=== PATIENT | male | born 1945 | race Caucasian/White ===

== ENCOUNTER → 2016-08-14 | Outpatient (REF) | payer OTHER ==
[2016-08-14 12:11] LABS: MEAN CORPUSCULAR HEMOGLOBIN 34.6 pg (27.0-33.0); MEAN CORPUSCULAR VOLUME 98.9 fl (80.0-96.0); RED CELL DISTRIBUTION WIDTH 13.1 % (11.5-14.5); WHITE BLOOD COUNT 5.5 K/mm3 (4.0-10.0)
[2016-08-14 12:15] LABS: ALBUMIN/GLOBULIN RATIO 1.25 (1.00-1.93); BILIRUBIN,TOTAL 0.9 MG/DL (0.2-1.0); CALCIUM LEVEL 9.2 MG/DL (8.8-10.2); CREATININE FOR GFR 1.39 MG/DL (0.70-1.30); GLOMERULAR FILTRATION RATE 53.3 (>42); POTASSIUM SERUM 4.4 MEQ/L (3.5-5.1); TOTAL PROTEIN 7.2 GM/DL (6.4-8.2)
== END ==
LOC: M SFHCCLAY 07:05
PROVIDERS: ATTEND Family Medicine
DX: Z51.81 Encounter for therapeutic drug level monitoring (principal); Z79.01 Long term (current) use of anticoagulants; I25.10 Atherosclerotic heart disease of native coronary artery without angina pectoris; K76.89 Other specified diseases of liver; E78.00 Pure hypercholesterolemia, unspecified

== ENCOUNTER → 2016-12-26 | Outpatient (REF) | payer OTHER ==
[2016-12-26 11:40] LABS: BASO % 0.4 % (0.0-1.0); EOS # 0.2 K/mm3 (0.0-0.50); EOS % 3.2 % (0.0-3.0); LARGE UNSTAINED CELL # 0.2 K/mm3 (0.0-0.4); LARGE UNSTAINED CELL % 2.4 % (0.0-4.0); LYMPH # 1.1 K/mm3 (1.5-4.5); LYMPH % 17.8 % (24.0-44.0); MEAN CORPUSCULAR HEMOGLOBIN 34.5 pg (27.0-33.0); MEAN CORPUSCULAR HGB CONC 34.8 g/dl (32.0-36.5); MEAN CORPUSCULAR VOLUME 99.2 fl (80.0-96.0); MONO # 0.7 K/mm3 (0.0-0.8); MONO % 10.6 % (0.0-5.0); NEUTROPHILS # 4.1 K/mm3 (1.8-7.7); NEUTROPHILS % 65.6 % (36.0-66.0); PLATELET COUNT, AUTOMATED 209 k/mm3 (150-450); RED CELL DISTRIBUTION WIDTH 12.3 % (11.5-14.5); WHITE BLOOD COUNT 6.2 K/mm3 (4.0-10.0)
[2016-12-26 12:18] LABS: ALBUMIN 4.1 GM/DL (3.2-5.2); ALBUMIN/GLOBULIN RATIO 1.37 (1.00-1.93); BILIRUBIN,TOTAL 0.9 MG/DL (0.2-1.0); CALCIUM LEVEL 9.3 MG/DL (8.8-10.2); CREATININE FOR GFR 1.56 MG/DL (0.70-1.30); GLOMERULAR FILTRATION RATE 46.7 (>42); POTASSIUM SERUM 5.3 MEQ/L (3.5-5.1); TOTAL PROTEIN 7.1 GM/DL (6.4-8.2)
== END ==
LOC: M SFHCCLAY 09:04
PROVIDERS: ATTEND Family Medicine
DX: Z51.81 Encounter for therapeutic drug level monitoring (principal); Z79.01 Long term (current) use of anticoagulants; K76.89 Other specified diseases of liver; R73.9 Hyperglycemia, unspecified

== ENCOUNTER → 2017-02-05 | Outpatient (REF) | payer OTHER ==
[2017-02-05 19:33] LABS: ALBUMIN 3.9 GM/DL (3.2-5.2); CALCIUM LEVEL 8.8 MG/DL (8.8-10.2); CREATININE FOR GFR 1.51 MG/DL (0.70-1.30); GLOMERULAR FILTRATION RATE 48.5 (>42); MAGNESIUM LEVEL 2.3 MG/DL (1.8-2.4); PHOSPHORUS LEVEL 3.7 MG/DL (2.5-4.9)
== END ==
LOC: M LAB REF 16:35
PROVIDERS: ATTEND Physician Assistant
DX: I50.32 Chronic diastolic (congestive) heart failure (principal)

== ENCOUNTER → 2017-08-06 | Outpatient (REF) | payer OTHER ==
[2017-08-06 11:37] LABS: HEMATOCRIT 41.8 % (42.0-52.0); HEMOGLOBIN 14.7 g/dl (13.5-17.5); MEAN CORPUSCULAR HEMOGLOBIN 33.3 pg (27.0-33.0); MEAN CORPUSCULAR HGB CONC 35.2 g/dl (32.0-36.5); MEAN CORPUSCULAR VOLUME 94.8 fl (80.0-96.0); PLATELET COUNT, AUTOMATED 192 10^3/uL (150-450); RED BLOOD COUNT 4.41 10^6/uL (4.30-6.10); RED CELL DISTRIBUTION WIDTH 12.3 % (11.5-14.5); WHITE BLOOD COUNT 6.3 10^3/uL (4.0-10.0)
[2017-08-06 11:38] LABS: ALBUMIN/GLOBULIN RATIO 1.33 (1.00-1.93); ALKALINE PHOSPHATASE 72 U/L (45-117); ALT/SGPT 30 U/L (12-78); ANION GAP 10 MEQ/L (8-16); AST/SGOT 34 U/L (7-37); BLOOD UREA NITROGEN 18 MG/DL (7-18); CALCIUM LEVEL 9.2 MG/DL (8.8-10.2); CARBON DIOXIDE LEVEL 25 MEQ/L (21-32); CHLORIDE LEVEL 99 MEQ/L (98-107); CHOLESTEROL LEVEL 170 MG/DL (<200); CHOLESTEROL RISK RATIO 4.857 (<5); CREATININE FOR GFR 1.38 MG/DL (0.70-1.30); GAMMA GLUTAMYLTRANSPEPTIDASE 180 U/L (15-85); GLOMERULAR FILTRATION RATE 53.6 (>42); GLUCOSE, FASTING 278 MG/DL (70-100); HDL CHOLESTEROL 35 MG/DL (>40); LDL CHOLESTEROL 93.6 MG/DL (<100); MAGNESIUM LEVEL 2.5 MG/DL (1.8-2.4); NON-HDL-C 135 MG/DL; POTASSIUM SERUM 4.2 MEQ/L (3.5-5.1); SODIUM LEVEL 134 MEQ/L (136-145); TRIGLYCERIDES LEVEL 207 MG/DL (<150)
[2017-08-06 12:57] LABS: ESTIMATED AVERAGE GLUCOSE 214 MG/DL (60-110); HEMOGLOBIN A1c 9.1 %
== END ==
LOC: M SFHCCLAY 07:46
DX: R73.9 Hyperglycemia, unspecified (principal); I25.10 Atherosclerotic heart disease of native coronary artery without angina pectoris; E78.00 Pure hypercholesterolemia, unspecified; I10 Essential (primary) hypertension; Z79.01 Long term (current) use of anticoagulants; K76.89 Other specified diseases of liver
CPT/HCPCS: 82977

== ENCOUNTER → 2017-08-17 | Outpatient (CLI) | payer OTHER | LOC: M RAD 09:55 | DX: I65.23 Occlusion and stenosis of bilateral carotid arteries (principal) | CPT/HCPCS: 93880 ==

== ENCOUNTER → 2017-09-29 | Outpatient (REF) | payer OTHER ==
[2017-09-29 14:19] LABS: ALBUMIN/GLOBULIN RATIO 1.43 (1.00-1.93); ALKALINE PHOSPHATASE 62 U/L (45-117); ALT/SGPT 28 U/L (12-78); AST/SGOT 26 U/L (7-37); BILIRUBIN,DIRECT 0.3 MG/DL (0.0-0.2); CHOLESTEROL LEVEL 90 MG/DL (<200); HDL CHOLESTEROL 36 MG/DL (>40); LDL CHOLESTEROL 27.4 MG/DL (<100); NON-HDL-C 54 MG/DL; TOTAL PROTEIN 6.8 GM/DL (6.4-8.2); TRIGLYCERIDES LEVEL 133 MG/DL (<150)
== END ==
LOC: M LABDRAWC 11:51
DX: E78.2 Mixed hyperlipidemia (principal); E11.9 Type 2 diabetes mellitus without complications
CPT/HCPCS: 80076

== ENCOUNTER → 2017-09-29 | Outpatient (REF) | payer OTHER ==
[2017-09-29 13:50] LABS: ANION GAP 14 MEQ/L (8-16); BLOOD UREA NITROGEN 19 MG/DL (7-18); CALCIUM LEVEL 9.1 MG/DL (8.8-10.2); CARBON DIOXIDE LEVEL 24 MEQ/L (21-32); CHLORIDE LEVEL 100 MEQ/L (98-107); CREATININE FOR GFR 1.56 MG/DL (0.70-1.30); GLOMERULAR FILTRATION RATE 46.5 (>42); GLUCOSE, FASTING 141 MG/DL (70-100); SODIUM LEVEL 138 MEQ/L (136-145)
== END ==
LOC: M SFHCCLAY 07:28
DX: E11.9 Type 2 diabetes mellitus without complications (principal)

== ENCOUNTER → 2017-11-02 | Outpatient (CLI) | payer OTHER | LOC: M RAD 10:10 | DX: I70.70 Unspecified atherosclerosis of other type of bypass graft(s) of the extremities (principal); I70.0 Atherosclerosis of aorta; I70.8 Atherosclerosis of other arteries | CPT/HCPCS: 93925 ==

== ENCOUNTER → 2018-01-20 | Outpatient (CLI) | payer OTHER | LOC: M RAD 10:43 | DX: I65.23 Occlusion and stenosis of bilateral carotid arteries (principal) | CPT/HCPCS: 93880 ==

== ENCOUNTER → 2018-08-16 | Outpatient (REF) | payer MEDICARE ==
[2018-08-16 11:53] LABS: HEMOGLOBIN 12.5 g/dl (13.5-17.5); MEAN CORPUSCULAR HEMOGLOBIN 29.8 pg (27.0-33.0); MEAN CORPUSCULAR HGB CONC 32.9 g/dl (32.0-36.5); MEAN CORPUSCULAR VOLUME 90.7 fl (80.0-96.0); PLATELET COUNT, AUTOMATED 196 10^3/uL (150-450); RED BLOOD COUNT 4.19 10^6/uL (4.30-6.10); WHITE BLOOD COUNT 5.9 10^3/uL (4.0-10.0)
[2018-08-16 12:09] LABS: HEMOGLOBIN A1c 8.1 %
[2018-08-16 12:16] LABS: BILIRUBIN,TOTAL 0.7 MG/DL (0.2-1.0); CHOLESTEROL RISK RATIO 2.795 (<5); CREATININE FOR GFR 1.69 MG/DL (0.70-1.30); GLOMERULAR FILTRATION RATE 42.3 (>42); POTASSIUM SERUM 4.2 MEQ/L (3.5-5.1); TOTAL PROTEIN 7.1 GM/DL (6.4-8.2)
== END ==
LOC: M SFHCCLAY 07:08
PROVIDERS: ATTEND Family Medicine
DX: E78.00 Pure hypercholesterolemia, unspecified (principal); K76.89 Other specified diseases of liver; Z79.01 Long term (current) use of anticoagulants; I10 Essential (primary) hypertension; E11.9 Type 2 diabetes mellitus without complications

== ENCOUNTER → 2018-08-17 | Outpatient (CLI) | payer MEDICARE ==
--- NOTE | 2018-08-18 05:29 | REP ---
Clinical: Bilateral stenosis. Comparison: 08/17/2017 . Technique: Parker scale and color Doppler evaluation using linear high frequency transducer Findings: Two-dimensional parker scale and color images demonstrate mixed partially calcified atheromatous plaquing through the carotid bulbs and proximal internal carotid arteries. Calcifications causing posterior shadowing which limit evaluation and velocities are felt underestimate the extent of stenosis. Color Doppler interrogation demonstrates normal arterial wave patterns and velocities with mild spectral broadening. Normal flow direction is appreciated in the bilateral vertebral arteries. RIGHT (cm/s) LEFT (cm/s) ICA peak systolic velocity 101.1 51.3 ICA diastolic velocity 76 36 ECA peak systolic velocity 133.5 171.4 CCA peak systolic velocity 104.8 89.5 ICA/CCA ratio 0.98 0.50 Impression: Calcified plaquing limits evaluation. Narrowing is felt to be in the 50 to 69% range. Consider MRA for more definitive evaluation. Electronically Signed by Efrain Hernandez MD 08/18/2018 05:20 A
== END ==
LOC: M RAD 09:37
PROVIDERS: ATTEND Surgery Vascular Surgery
DX: I65.23 Occlusion and stenosis of bilateral carotid arteries (principal)

== ENCOUNTER → 2018-11-10 | Outpatient (REF) | payer MEDICARE ==
[2018-11-10 12:22] LABS: HEMOGLOBIN A1c 7.5 %
[2018-11-10 12:24] LABS: CALCIUM LEVEL 9.4 MG/DL (8.8-10.2); CHOLESTEROL RISK RATIO 2.361 (<5); CREATININE FOR GFR 1.47 MG/DL (0.70-1.30); GLOMERULAR FILTRATION RATE 49.7 (>42); POTASSIUM SERUM 4.2 MEQ/L (3.5-5.1); TOTAL PROTEIN 7.1 GM/DL (6.4-8.2)
== END ==
LOC: M SFHCCLAY 07:54
PROVIDERS: ATTEND Family Medicine
DX: E78.2 Mixed hyperlipidemia (principal); I48.2 Chronic atrial fibrillation; I25.10 Atherosclerotic heart disease of native coronary artery without angina pectoris; E11.9 Type 2 diabetes mellitus without complications

== ENCOUNTER → 2019-01-18 | Outpatient (CLI) | payer MEDICARE ==
--- NOTE | 2019-01-18 13:59 | REP ---
BILATERAL LOWER EXTREMITY DUPLEX DOPPLER ARTERIAL ULTRASOUND: COMPARISON: 11/02/2017. Real-time ultrasound evaluation and duplex Doppler interrogation of the bilateral lower extremity arterial systems is performed. CHESTER right is 0.88 and left 0.74. There is severe diffuse partially calcified and calcified plaque in the bilateral lower extremity arterial systems. On the right, significant stenosis is suspected in the right external iliac artery and common femoral artery. Monophasic waveforms again noted diffusely, except for a biphasic waveforms in the superficial femoral artery and profunda. There appear to be multifocal stenoses in the superficial femoral artery with a slow flow. The distal right posterior tibial artery is occluded, with reconstitution at the ankle. On the left, decreased velocity in the common femoral artery suggests more proximal stenosis. There is occlusion of the distal superficial femoral artery with reconstitution of the distal SFA and popliteal via the genicular . Biphasic waveform is seen in the left common femoral artery, with monophasic waveforms distal to that. The anterior tibial artery is dominant to the foot bilaterally. Right Peak Left Peak Systolic Velocity Systolic velocity Common femoral artery 348 cm/s 67 cm/s Profunda 92 cm/s 145 cm/s Proximal SFA 71 cm/s 46 cm/s Mid SFA 39 cm/s 31 cm/s Distal SFA 24 cm/s occluded Popliteal 33 cm/s 50 cm/s Proximal TONIE 19 cm/s 17 cm/s Tibial peroneal trunk 58 cm/s 22 cm/s Proximal DUPLEX TRIMMER 31 cm/s 23 cm/s Distal DUPLEX TRIMMER occluded 33 cm/s Distal TONIE 28 cm/s 26 cm/s IMPRESSION: Severe plaquing and narrowing bilaterally. On the right, significant stenosis is suspected in the right external iliac artery and common femoral artery. There appear to be multifocal stenoses in the superficial femoral artery with a slow flow. The distal right posterior tibial artery is occluded, with reconstitution at the ankle. On the left, decreased velocity in the common femoral artery suggests more proximal stenosis. There is occlusion of the distal superficial femoral artery with reconstitution of the distal SFA and popliteal via the genicular . Electronically Signed by Pee Parker MD 01/21/2019 01:16 P
== END ==
LOC: M RAD 09:54
PROVIDERS: ATTEND Surgery Vascular Surgery
DX: I70.213 Atherosclerosis of native arteries of extremities with intermittent claudication, bilateral legs (principal)

== ENCOUNTER → 2019-01-27 | Outpatient (REF) | payer MEDICARE ==
[2019-01-27 12:41] LABS: ALBUMIN 3.9 GM/DL (3.2-5.2); BILIRUBIN,TOTAL 1.7 MG/DL (0.2-1.0); CALCIUM LEVEL 9.2 MG/DL (8.8-10.2); CREATININE FOR GFR 1.43 MG/DL (0.70-1.30); GLOMERULAR FILTRATION RATE 51.3 (>42); POTASSIUM SERUM 4.5 MEQ/L (3.5-5.1); TOTAL PROTEIN 6.9 GM/DL (6.4-8.2)
[2019-01-27 12:50] LABS: HEMOGLOBIN A1c 6.9 %
== END ==
LOC: M SFHCCLAY 08:53
PROVIDERS: ATTEND Family Medicine
DX: K76.89 Other specified diseases of liver (principal); I25.10 Atherosclerotic heart disease of native coronary artery without angina pectoris; E11.22 Type 2 diabetes mellitus with diabetic chronic kidney disease

== ENCOUNTER → 2019-09-23 | Outpatient (REF) | payer MEDICARE ==
[2019-09-23 16:10] LABS: BASO % 0.4 % (0.0-1.0); EOS # 0.2 10^3/uL (0.0-0.5); EOS % 3.1 % (0.0-3.0); HEMATOCRIT 38.4 % (42.0-52.0); HEMOGLOBIN 12.7 g/dl (13.5-17.5); LYMPH % 13.1 % (24.0-44.0); MEAN CORPUSCULAR HGB CONC 33.1 g/dl (32.0-36.5); MEAN CORPUSCULAR VOLUME 96.7 fl (80.0-96.0); MONO # 1.2 10^3/uL (0.0-0.8); MONO % 15.2 % (0.0-5.0); NEUTROPHILS # 5.3 10^3/uL (1.5-8.5); NEUTROPHILS % 67.8 % (36.0-66.0); PLATELET COUNT, AUTOMATED 174 10^3/uL (150-450); RED BLOOD COUNT 3.97 10^6/uL (4.30-6.10); WHITE BLOOD COUNT 7.8 10^3/uL (4.0-10.0)
[2019-09-23 16:44] LABS: BILIRUBIN,TOTAL 1.3 MG/DL (0.2-1.0); CALCIUM LEVEL 9.2 MG/DL (8.8-10.2); CHOLESTEROL RISK RATIO 2.404 (<5); CREATININE FOR GFR 1.39 MG/DL (0.70-1.30); GLOMERULAR FILTRATION RATE 52.9 (>42); POTASSIUM SERUM 4.9 MEQ/L (3.5-5.1); TOTAL PROTEIN 7.2 GM/DL (6.4-8.2)
[2019-09-23 17:30] LABS: HEMOGLOBIN A1c 6.8 %
== END ==
LOC: M SFHCCLAY 11:10
PROVIDERS: ATTEND Family Medicine
DX: Z79.01 Long term (current) use of anticoagulants (principal); E11.9 Type 2 diabetes mellitus without complications; K76.89 Other specified diseases of liver; E78.00 Pure hypercholesterolemia, unspecified

== ENCOUNTER 2019-12-12 14:58 | Inpatient (IN) | payer MEDICARE ==
[~2019-12-12] VITALS: Ht 175.3 cm; Wt 105.6 kg
[2019-12-12] MEDS ORDERED: GLIM1TAB4 PO (15:12)
[2019-12-12] MEDS ORDERED: AZIT-12 PO (15:12)
[2019-12-12] MEDS ORDERED: ELIQ2.5T PO (15:12)
[2019-12-12] MEDS ORDERED: BUME1TAB3 PO (15:12)
[2019-12-12] MEDS ORDERED: ROSU5TAB5 PO (15:12)
[2019-12-12] MEDS ORDERED: PRED20TA PO (15:12)
[2019-12-12] MEDS ORDERED: NORV5TAB PO (15:12)
[2019-12-12] MEDS ORDERED: PLAV1TAB2 PO (15:12)
[2019-12-12] MEDS ORDERED: FOSI40TA3 PO (15:12)
[2019-12-12] MEDS ORDERED: ATEN50TA2 PO (15:12)
[2019-12-12] MEDS ORDERED: NS 1,000 ML IV SCH (18:15)
[2019-12-12 19:23] LABS: CK-MB VALUE MASS 4.8 NG/ML (<3.6); CPK CREATINE PHOSPHOKINASE 197 U/L (39-308); ETHYL ALCOHOL (ETHANOL) < 0.003 % (0.000-0.010); MAGNESIUM LEVEL 2.3 MG/DL (1.8-2.4); MB/CK RELATIVE INDEX 2.44 (< OR =4); TROPONIN I < 0.02 NG/ML (< 0.10)
[2019-12-12] MEDS ORDERED: GLUCOSE 4GM CHEW TABLET PO PRN (19:30)
[2019-12-12] MEDS ORDERED: ACETAMINOPHEN TAB 650MG DOSE (2X325MG) PO PRN (19:30)
[2019-12-12] MEDS ORDERED: DEXTROSE 50% 50 ML SYRINGE IV PRN (19:30)
[2019-12-12] MEDS ORDERED: ALBUTEROL SULFATE 2.5 MG/0.5 ML INH NEB SOLN NEB PRN (19:30)
[2019-12-12] MEDS ORDERED: LORazepam 2 MG/ML VIAL IV PRN ×2 (19:30→20:00)
[2019-12-12] MEDS ORDERED: GLUCAGON INJ 1MG VIAL SC PRN (19:30)
[2019-12-12] MEDS ORDERED: methylPREDNISolone 125MG 2ML VIAL IV STA (19:30)
--- NOTE | 2019-12-12 19:40 | HPEPDOC ---
[facility] Medical History & Physical Date of Admission Dec 12, 2019 Date of Service: Dec 12, 2019 Primary Care Physician: SHAYY QUIROZ DO Attending Physician: HOWARD SIMMS MD History and Physical TIME OF SERVICE: 857 PM CHIEF COMPLAINT: shortness of breath HISTORY OF PRESENT ILLNESS: This 74 yr old M came to the hospital because he has been feeling terrible for 1 week; specifically he has worsening shortness of breath, and lower extremity edema. His shortness of breath that is worse when exerts himself; he cant walk more than 50 feet w/o having to stop to rest. He has 2 pillow orthopnea which has not changed recently and has noticed more fluid in around his legs. He denies missing does of his Bumex, eating out, eating more salt than usual but admits to drinking a lot of water which he thinks may help the cramps in his legs. He also added that his bronchitis tends to get worse when the weather cools off and seems to think that this may be his most urgent problem today. He has a hx of hyponatremia and added that I loose consciousness when my sodium gets to 123. His medical transcriber is working on scheduling an elective cath at [facility] in the near future. REVIEW OF SYSTEMS: 12 point review of systems negative except as listed in HPI PAST MEDICAL/ SURGICAL HISTORY: Unspecified type of CHF (not documented in clinic note) COPD Chronic CAD/ s/p CABG 1990, PCTA of RCA 1996 CKD3 AFib Chronic HTN Hx of Hyponatremia NIDDM Dyslipidemia Obesity Cholecystectomy SOCIAL HISTORY: Former smoker FAMILY HISTORY: Alzheimer ALLERGIES: Please see below. HOME MEDICATIONS: Please see below. PHYSICAL EXAM Vital Signs Date Time Temp Pulse Resp B/P (MAP) Pulse Ox O2 Delivery O2 Flow Rate FiO2 12/12/19 15:00 97.5 72 15 144/87 (106) 97 Room Air GENERAL APPEARANCE: Pickwickian habitus / NAD HEENT: no scleral icterus / EOMI CARDIOVASCULAR: RRR/NMRG / BLE edema up to knees LUNGS: coughing occasionally / expiratory crackles ABDOMEN: distended/ + BS MUSCULOSKELETAL: FERNANDEZ x 4 INTEGUMENT: spider angiomata on nares NEUROLOGICAL: CN -12 intact / speech not dysarthric PSYCHIATRIC: A&Ox 3 /able to understand and follow all commands LABORATORY DATA: 12/13/19 00:06 WBC 14.9, Hg 12.2, Plt 198 12/12/19 18:07: Magnesium Level 2.3, Total Creatine Kinase 197, Creatine Kinase MB 4.8H, Creatine Kinase MB Relative Index 2.44, Troponin I < 0.02, Ethyl Alcohol Level < 0.003 IMAGING: Chest xray report pending. MICROBIOLOGY: Please see below. ASSESSMENT: is a 74 yr old w a hx of COPD, unspecified CHF, CAD/CABG, and A.fib who presented w c/o of dyspnea likely 2/2 a combination of acute COPD and fluid overload. PLAN: 1 Acute COPD Respiratory panel & VBG unremarkable Plan: admit to PCU / supplemental O2 / pulse oximetry / aspiration precautions / f/u final chest x-ray report serial troponins & d-dimer / solumedrol now / Dunebs Q6H, Albuterol Q1HP, Prednisone + PPI / / refer to [facility] for repeat PFTs and Pulmonary Rehab when ready for d/c 2 Fluid overload suspected acute CHF Plan: f/u Is & Os, daily weights, Echo / hold of diuretics bc of hyponatremia pending Nephro eval 3 Multifactorial Asymptomatic Hyponatremia He received some NS in the ER Plan: seizure precautions / f/u repeat Na, osmol, Maria Alejandra and U osmo / Nephro cons ult 4 Leukocytosis He is on steroids at home Plan: f/u lactic acid, blood cx and vitals 5 Macrocytic Anemia Plan: f/u iron studies, b12 and folate 6 Chronic CAD / Dyslipidemia Plan: atenolol, clopidogrel, statin, zetia 7. CKD3 Plan: f/u BMP 8. AFib Plan: apixaban 9. NIDDM Plan: FSBS, SSI, hypoglycemia protocol, A1C 10. Chronic HTN Plan: amlodipine, fosinopril 11. Obesity BMI 38.3 complicates care Plan: f/u w PCP for sleep apnea screening Dispo: home after more than 2 midnights stay DVT px n/a on AC for A.fib LATE ENTRY #Elevated D-dimer of unclear cause Plan:f/u CTA chest Home Medications Scheduled Amlodipine Besylate (Norvasc) 5 Mg Tablet, 5 MG PO BID Apixaban (Eliquis) 2.5 Mg Tablet, 2.5 MG PO BID Atenolol (Atenolol) 50 Mg Tablet, 50 MG PO DAILY Azithromycin (Azithromycin) 250 Mg Tablet, 250 MG PO DAILY STARTED 12/01/19 FOR 5 DAYS Bumetanide (Bumetanide) 1 Mg Tablet, 1 MG PO DAILY Clopidogrel Bisulfate (Plavix) 75 Mg Tablet, 75 MG PO DAILY Ezetimibe (Zetia) 10 Mg Tablet, 10 MG PO DAILY Fosinopril Sodium (Fosinopril Sodium) 40 Mg Tablet, 40 MG PO DAILY Glimepiride (Glimepiride) 1 Mg Tablet, 1 MG PO DAILY Multivitamins (Thera M Plus Tablet) 1 Each Tablet, 1 TAB PO DAILY Prednisone (Prednisone) 20 Mg Tablet, 20 MG PO BID FILLED 12/11/19 Rosuvastatin Calcium (Rosuvastatin Calcium) 5 Mg Tablet, 5 MG PO QHS Umeclidinium [place] (Incruse Ellipta) 62.5 Mcg Blst.w.dev, 1 PUFF INH DAILY Scheduled PRN Albuterol Sulf (Albuterol Sulfate) 2.5 Mg/3 Ml Vial.neb, 2.5 MG INH TID PRN for SHORTNESS OF BREATH Allergies Coded Allergies: Sulfa (Sulfonamide Antibiotics) (Verified Allergy, Unknown, 12/12/19) A-FIB/CHADSVASC A-FIB History Current/History of A-Fib/PAF?: Yes Current PO Anticoag Therapy: Yes HOWARD SIMMS MD Dec 12, 2019 19:40
[2019-12-12] MEDS: IPRATROPIUM 0.5MG/ALBUTEROL 2.5MG INH SOL UD 3ML (DUONEB) NEB SCH (19:53)
[2019-12-12] MEDS ORDERED: INCR1INH INH (20:18)
[2019-12-12] MEDS ORDERED: ALBU83IN INH (20:18)
[2019-12-12] MEDS ORDERED: ZETI10TA16 PO (20:18)
[2019-12-12] MEDS ORDERED: VITMTA PO (20:18)
[2019-12-12] MEDS: ROSUVASTATIN 10 MG TAB (CRESTOR) PO SCH (21:00)
[2019-12-12] MEDS: HumaLOG INSULIN (NovoLOG) PER UNIT SC SCH (21:00)
[2019-12-12] MEDS: APIXABAN 2.5 MG TAB (ELIQUIS) PO SCH (21:00)
[2019-12-12] MEDS ORDERED: amLODIPine 5 MG TAB PO SCH (21:00)
[2019-12-12] MEDS: DOCUSATE SODIUM 100 MG CAP PO SCH (21:00)
[2019-12-12 21:17] LABS: NT-PRO BNP 1401 PG/ML (<450)
[2019-12-12] MEDS: THIAMINE 100 MG TAB PO SCH (21:51)
[2019-12-12 22:52] LABS: VENOUS PARTIAL PRESSURE O2 54.4 mmHg (30.0-50.0); VENOUS PH 7.398 UNITS (7.330-7.430)
[2019-12-12 22:53] LABS: VENOUS BASE EXCESS -3.1 (-2.0-2.0); VENOUS HCO3 21.1 MEQ/L (23.0-27.0); VENOUS O2 SATURATION 86.3 % (60.0-80.0); VENOUS STANDARD HCO3 21.7 MEQ/L; VENOUS TOTAL CO2 22.2 MEQ/L (24.0-28.0)
[2019-12-12 23:02] LABS: FERRITIN 104 NG/ML (26-388); IRON (FE) 21 UG/DL (65-175); PERCENT SATURATION 5.4 % (19.7-50.0); TOTAL IRON BINDING CAPACITY 390 UG/DL (250-450)
[2019-12-12 23:11] LABS: FOLATE 21.6 NG/ML (>5.4); VITAMIN B12 LEVEL 979 PG/ML (247-911)
[2019-12-12 23:36] VITALS: BP 142/78
[2019-12-13] VITALS (23 sets, daily range): BP systolic 134–155; BP diastolic 52–89; O2SAT 89–96
[2019-12-13 01:05] LABS: TROPONIN I < 0.02 NG/ML (< 0.10)
[2019-12-13 01:23] LABS: BLOOD UREA NITROGEN 27 MG/DL (7-18); CALCIUM LEVEL 8.8 MG/DL (8.8-10.2); CARBON DIOXIDE LEVEL 22 MEQ/L (21-32); CHLORIDE LEVEL 92 MEQ/L (98-107); CREATININE FOR GFR 1.31 MG/DL (0.70-1.30); GLOMERULAR FILTRATION RATE 56.6 (>42); GLUCOSE, FASTING 136 MG/DL (70-100); SODIUM LEVEL 123 MEQ/L (136-145)
[2019-12-13] MEDS ORDERED: ISOVUE-370 76% 100ML VIAL As Ordered ONE (01:35)
[2019-12-13] MEDS: IPRATROPIUM 0.5MG/ALBUTEROL 2.5MG INH SOL UD 3ML (DUONEB) NEB SCH ×4 (02:26→20:24)
--- NOTE | 2019-12-13 02:43 | REPVR ---
PROCEDURE INFORMATION: Exam: CT Angiography Chest with Contrast Exam date and time: 12/13/19 (2:09am) Age: 74 years old Clinical indication: Dyspnea. Elevated D-dimer. Possible pulmonary embolism. TECHNIQUE: Imaging protocol: Computed tomographic angiography of the chest with intravenous contrast. 3D rendering (Not supervised by radiologist): MIP and/or 3D reconstructed images were created by the technologist. Radiation optimization: All CT scans at this facility use at least one of these dose optimization techniques: automated exposure control; mA and/or kV adjustment per patient size (includes targeted exams where dose is matched to clinical indication); or iterative reconstruction. Contrast material: Iso Contrast volume: 75 ml Contrast route: IV COMPARISON: Chest films of 12/12/19 FINDINGS: Pulmonary arteries: Normal. No pulmonary emboli. Aorta: Unremarkable. No aortic aneurysm. No aortic dissection. Lungs: No consolidation. No masses. Some bibasilar atelectasis. Pleural space: No pneumothorax. [id number] bilateral pleural effusions. Heart: Cardiomegaly. No pericardial effusion. Previous CABG surgery. Lymph nodes: Unremarkable. No enlarged lymph nodes. Mediastinum: Prominent mediastinal fat. Bones/joints: No acute fracture. Previous sternotomy. Multilevel degenerative thoracic spine changes. Soft tissues: Unremarkable. Upper abdomen: Some upper abdominal ascites. Previous cholecystectomy. IMPRESSION: No filling defects suspicious for pulmonary emboli are seen. There is no CT evidence of aortic dissection nor leakage. No aortic aneurysm is appreciated. [id number] bilateral pleural effusions. Cardiomegaly. Previous sternotomy and CABG surgery. Previous cholecystectomy. Some upper abdominal ascites. Electronically signed by: Louann Gao On 12/13/2019 02:42:48 AM
[2019-12-13] MEDS ORDERED: PILL CUTTER 1 EACH XX PRN (03:30)
[2019-12-13 06:24] LABS: HEMATOCRIT 32.8 % (42.0-52.0); HEMOGLOBIN 11.4 g/dl (13.5-17.5); MEAN CORPUSCULAR HEMOGLOBIN 33.7 pg (27.0-33.0); MEAN CORPUSCULAR HGB CONC 34.8 g/dl (32.0-36.5); PLATELET COUNT, AUTOMATED 204 10^3/uL (150-450); RED BLOOD COUNT 3.38 10^6/uL (4.30-6.10); WHITE BLOOD COUNT 9.6 10^3/uL (4.0-10.0)
[2019-12-13 06:50] LABS: BLOOD UREA NITROGEN 27 MG/DL (7-18); CALCIUM LEVEL 8.5 MG/DL (8.8-10.2); CARBON DIOXIDE LEVEL 23 MEQ/L (21-32); CHLORIDE LEVEL 91 MEQ/L (98-107); CREATININE FOR GFR 1.24 MG/DL (0.70-1.30); GLOMERULAR FILTRATION RATE > 60.0 (>42); GLUCOSE, FASTING 154 MG/DL (70-100); POTASSIUM SERUM 4.3 MEQ/L (3.5-5.1); SODIUM LEVEL 124 MEQ/L (136-145); TROPONIN I < 0.02 NG/ML (< 0.10)
[2019-12-13 07:44] LABS: HEMOGLOBIN A1c 6.4 %
[2019-12-13 08:26] LABS: FREE THYROXINE INDEX 2.9 % (1.4-3.8); T UPTAKE 37 % (33-40); THYROID STIMULATING HORMONE 0.723 uIU/ML (0.358-3.740); THYROXINE (T4) 7.9 UG/DL (4.5-12.0)
[2019-12-13] MEDS: HumaLOG INSULIN (NovoLOG) PER UNIT SC SCH ×4 (08:56→21:00)
[2019-12-13] MEDS: EZETIMIBE 10 MG TAB (ZETIA) PO SCH (08:57)
[2019-12-13] MEDS: DOCUSATE SODIUM 100 MG CAP PO SCH ×2 (08:57→21:18)
[2019-12-13] MEDS: FOLIC ACID 1 MG TAB PO SCH (08:58)
[2019-12-13] MEDS: THIAMINE 100 MG TAB PO SCH ×2 (08:59→21:18)
[2019-12-13] MEDS: MULTIVITAMINS/MINERALS THERAP 1 TAB PO SCH (08:59)
[2019-12-13] MEDS ORDERED: FOSINOPRIL 20 MG TAB PO SCH (09:00)
[2019-12-13] MEDS ORDERED: atenoloL 50 MG TAB PO SCH (09:00)
[2019-12-13] MEDS: PANTOPRAZOLE 40MG TAB (PROTONIX) PO SCH (09:00)
[2019-12-13] MEDS: APIXABAN 2.5 MG TAB (ELIQUIS) PO SCH ×2 (09:00→21:18)
[2019-12-13] MEDS: predniSONE 20 MG TAB PO SCH (09:00)
[2019-12-13] MEDS ORDERED: amLODIPine 10 MG TAB PO SCH (09:00)
[2019-12-13] MEDS: CLOPIDOGREL 75 MG TAB PO SCH (09:02)
[2019-12-13] MEDS: atenoloL 50 MG TAB PO SCH ×2 (09:02→21:00)
[2019-12-13] MEDS ORDERED: POTASSIUM CHLORIDE 10 MEQ SR TABLET PO ONE (12:30)
[2019-12-13 12:42] LABS: CALCIUM LEVEL 8.7 MG/DL (8.8-10.2); CREATININE FOR GFR 1.53 MG/DL (0.70-1.30); GLOMERULAR FILTRATION RATE 47.3 (>42); POTASSIUM SERUM 4.8 MEQ/L (3.5-5.1)
[2019-12-13] MEDS: FUROSEMIDE 100MG/10ML VIAL (J1940) IV SCH ×2 (13:02→17:27)
--- NOTE | 2019-12-13 13:05 | IPNPDOC ---
Date Seen The patient was seen on 12/13/19. Progress Note Progress Note dictated Assessment: Acute decompensated Unspecified type of CHF (not documented in clinic note) Acute on Chronic Hyponatremia due to CHF COPD Chronic CAD/ s/p CABG 1990, PCTA of RCA 1996 CKD3 AFib Chronic HTN NIDDM Dyslipidemia Plan: Diuresis managed by nephrology, monitoring sodium levels q6hrs to prevent over correction Per patient, his implementation specialist payroll Dr. Nicholson was arranging angiogram as outpt. changed to iv lasix 80 mg q8hrs and hydralazine. holding parameters on bp meds. PT/OT VS, I&O, 24H, Fishbone Vital Signs/I&O Vital Signs Date Time Temp Pulse Resp B/P (MAP) Pulse Ox O2 Delivery O2 Flow Rate FiO2 12/13/19 12:00 99.6 83 17 147/89 (108) 96 Room Air 12/13/19 06:00 1.0 I&O- Last 24 Hours up to 6 AM 12/13/19 06:00 Intake Total 250 ml Output Total 750 ml Balance -500 ml Laboratory Data 24H LABS Laboratory Tests 2 12/12/19 18:07: Magnesium Level 2.3, Iron Level 21L, Total Iron Binding Capacity 390, Transferrin % Saturation 5.4L, Ferritin 104, Total Creatine Kinase 197, Creatine Kinase MB 4.8H, Creatine Kinase MB Relative Index 2.44, Troponin I < 0.02, QS-Atv-R-Type Natriuretic Peptide 1401H, Vitamin B12 Level 979H, Folate 21.6, Ethyl Alcohol Level < 0.003 12/12/19 20:32: Osmolality 259L 12/12/19 22:40: D-Dimer, Quantitative 3753.11H, Blood Gas Puncture Site UNKNOWN, Blood Gas Bicarbonate Standard 21.7, Venous Blood pH 7.398, Venous Blood Partial Pressure CO2 35.0L, Venous Blood Partial Pressure O2 54.4H, Venous Blood Total Carbon Dioxide 22.2L, Venous Blood HCO3 21.1L, Venous Blood Oxygen Saturation 86.3H, Venous Blood Base Excess -3.1L 12/12/19 22:45: Lactic Acid Level 1.2 12/13/19 00:06: Anion Gap 9, Glomerular Filtration Rate 56.6, Calcium Level 8.8, Troponin I < 0.02 12/13/19 05:13: Anion Gap 10, Glomerular Filtration Rate > 60.0, Calcium Level 8.5L, Troponin I < 0.02, Nucleated Red Blood Cells % (auto) 0.0, Estimated Mean Plasma Glucose 137H, Hemoglobin A1c 6.4, Thyroid Stimulating Hormone (TSH) 0.723, Free Thyroxine Index 2.9, Thyroxine (T4) 7.9, Triiodothyronine (T3) Uptake 37 12/13/19 11:56: Anion Gap 10, Glomerular Filtration Rate 47.3, Calcium Level 8.7L CBC/BMP Laboratory Tests 12/13/19 00:06 12/13/19 05:13 12/13/19 11:56 Microbiology Microbiology 12/12/19 Respiratory Virus Panel (PCR) ([facility]) - Final, Complete 12/12/19 Blood Culture, Received Pending SCARLETT CRUZ MD Dec 13, 2019 12:57
[2019-12-13] MEDS: LEVEMIR (INSULIN DETEMIR) 1 UNITS/0.01ML SC SCH ×2 (14:10→21:17)
[2019-12-13] MEDS: **hydrALAZINE HCL** 25 MG TAB PO SCH ×2 (14:11→21:19)
[2019-12-13] MEDS: IRON SUCROSE 200 MG in NS 100 ML IV SCH (15:25)
[2019-12-13 17:26] LABS: CHLORIDE,RANDOM URINE < 10 MEQ/L; CREATININE,RANDOM URINE 62.3 MG/DL; POTASSIUM RANDOM URINE 18.7 MEQ/L; SODIUM,RANDOM URINE < 10 MEQ/L
[2019-12-13 17:27] LABS: OSMOLALITY URINE 292 MOSM/KG (500-800)
[2019-12-13 18:59] LABS: CALCIUM LEVEL 9.1 MG/DL (8.8-10.2); CREATININE FOR GFR 1.5 MG/DL (0.70-1.30); GLOMERULAR FILTRATION RATE 48.4 (>42); POTASSIUM SERUM 4.3 MEQ/L (3.5-5.1)
[2019-12-13] MEDS: ROSUVASTATIN 10 MG TAB (CRESTOR) PO SCH (21:17)
[2019-12-14] VITALS (20 sets, daily range): BP systolic 120–168; BP diastolic 63–90; O2SAT 90–97
[2019-12-14 00:32] LABS: CALCIUM LEVEL 8.8 MG/DL (8.8-10.2); CREATININE FOR GFR 1.85 MG/DL (0.70-1.30); POTASSIUM SERUM 3.9 MEQ/L (3.5-5.1)
[2019-12-14] MEDS: FUROSEMIDE 100MG/10ML VIAL (J1940) IV SCH ×5 (00:33→23:52)
[2019-12-14] MEDS: IPRATROPIUM 0.5MG/ALBUTEROL 2.5MG INH SOL UD 3ML (DUONEB) NEB SCH ×4 (04:34→20:02)
[2019-12-14 06:21] LABS: CALCIUM LEVEL 8.7 MG/DL (8.8-10.2); CREATININE FOR GFR 1.72 MG/DL (0.70-1.30); GLOMERULAR FILTRATION RATE 41.4 (>42); POTASSIUM SERUM 4.1 MEQ/L (3.5-5.1)
[2019-12-14] MEDS: **hydrALAZINE HCL** 25 MG TAB PO SCH ×3 (06:46→21:34)
--- NOTE | 2019-12-14 08:10 | CR ---
DATE OF CONSULTATION: 12/13/2019 REQUESTING PHYSICIAN; Dr. Bea Anna CONSULTING PHYSICIAN: Dr. Darius Wiggins REASON FOR CONSULTATION: Management of hyponatremia. CHIEF COMPLAINT: Patient presented to the emergency room last night with progressive shortness of breath and not feeling well. HISTORY OF PRESENT ILLNESS: Mr. Hector Knight is a 74-year-old male with past medical history of congestive heart failure. Left ventricular (LV) ejection fraction is not known. History of chronic obstructive pulmonary disease (COPD), coronary artery disease, chronic kidney disease, stage III, at baseline, history of hyponatremia in the past as well. He presented to the emergency room yesterday with progressive shortness of breath and feeling terrible. He reported that for the last 1 week his shortness of breath was getting worse. He had lower extremity edema. He was unable to sleep without using two pillows at nighttime. He has been taking Bumex at home, which is not helping him much, and when he uses Bumex he gets leg cramps, and in order to get rid of the leg cramps he drinks a lot of water, and reports that when he tries to take more Bumex his sodium levels usually go down. In the past, because of hyponatremia, in [place] reports he was diuresed and lost more than 14-15 pounds. That helped improve his sodium levels. When patient arrived in the emergency room, he was found to have a sodium of 123, so nephrology service was called for further help in the management of his patient with hyponatremia and possible congestive heart failure. I saw and evaluated the patient today morning at the bedside. Patient was not on any diuretics. He was actually given intravenous (IV) fluids in the emergency room (ER), and he reports persistent shortness of breath and wheezing. MEDICAL HISTORY: 1. Chronic kidney disease, stage III. Baseline creatinine is around 1.2-1.3. 2. History of recurrent hyponatremia in the past. 3. Chronic obstructive pulmonary disease (COPD). 4. Congestive heart failure. LV ejection fraction not known. 5. Coronary artery disease. 6. History of coronary artery bypass graft (CABG) and stents in the past. 7. Atrial fibrillation. 8. Hypertension. 9. Diabetes mellitus, type 2, non-insulin dependent. 10. Hyperlipidemia. 11. Obesity. SURGICAL HISTORY: 1. Status post cholecystectomy in the past. 2. Status post coronary artery bypass grafting in 1990. 3. History of right coronary artery stenting in 1996. ALLERGIES: Allergic to SULFA DRUGS. FAMILY HISTORY: No significant family history of end stage renal disease requiring hemodialysis. There is positive history of Alzheimer's in the family. SOCIAL HISTORY: Patient denies any illicit drug abuse or alcohol abuse. He is a former smoker. REVIEW OF SYSTEMS: CONSTITUTIONAL: He reports feeling terrible. He denies any fever or chills.. EYES: He denies any blurry vision or double vision. ENT: He denies any dysphagia or odynophagia. CARDIOVASCULAR: He reports 2-pillow orthopnea and lower extremity edema. RESPIRATORY: He reports progressive shortness of breath. GASTROINTESTINAL: He reports decreased appetite. GENITOURINARY: He denies any dysuria or hematuria. MUSCULOSKELETAL: He does report muscle cramps sometimes. SKIN: He denies any rashes or ulcers. PSYCHIATRIC: He denies any depression or anxiety. HEMATOLOGIC/ONCOLOGIC: He denies any easy bleeding or bruising. All other review of systems is negative. PHYSICAL EXAMINATION: GENERAL: Patient is awake, alert, oriented times three. VITAL SIGNS: Temperature is 98.3 degrees Fahrenheit, blood pressure 148/75, pulse is 87, respiratory rate of 18, saturating 94% on room air. Intake and output: Urine output recorded is 400 mL since overnight. HEAD AND NECK: Extraocular muscles intact. Pupils equal, round, and reactive to light. Mucous membranes are moist. Neck is supple. He has moderately elevated jugular venous distention (JVD). CARDIOVASCULAR: S1, S2, regular rate. Edema 2+ of the bilateral lower extremities. RESPIRATORY: Mildly decreased breath sounds at the bases with mild expiratory rhonchi at the bases as well. ABDOMEN: Soft, obese. Positive bowel sounds. I could not appreciate any organomegaly. GENITOURINARY: Bladder is nonpalpable. MUSCULOSKELETAL: No clubbing or cyanosis. He has 2+ edema of the bilateral lower extremities. CENTRAL NERVOUS SYSTEM: No focal deficit. Power is 5/5 in all extremities. SKIN: No rashes or ulcers. PSYCHIATRIC: Normal mood and affect. LABORATORY REVIEW: CBC showed a WBC 9.6, hemoglobin 11.4, platelets are 204. D-dimer was 3753. Venous blood gas (VBG) done yesterday showed a pH of 7.39. BMP done today morning showed sodium 124, potassium 4.8, chloride 91, bicarbonate 23, BUN 33, creatinine is 1.5. Glucose is 265. A1c 6.4, Calcium 8.7. TSH is 0.723. Microbiology: Respiratory viral panel is negative. Blood cultures are pending. IMAGING DATA: A CT angiogram of the chest was done overnight, which showed no filling defects suspicious for pulmonary emboli. Small to moderate bilateral pleural effusions, cardiomegaly. Previous sternotomy and CABG surgery. Previous cholecystectomy. Small upper abdominal ascites. CURRENT INPATIENT MEDICATIONS: Patient's medications were all reviewed by myself. I see that he was given IV fluids hydration in the emergency room, which was stopped by the admitting physician. He is on Tylenol as needed, albuterol as needed nebulization. He is on DuoNeb as needed. He was started on amlodipine 10 mg by mouth daily, which I have stopped. He is on Eliquis 2.5 mg by mouth three times a day, atenolol 50 mg by mouth three times a day, Plavix 75 mg by mouth daily, Colace 100 mg by mouth twice a day, Zetia 10 mg by mouth daily, folic acid 1 mg by mouth daily. He was on fosinopril 40 mg by mouth daily, which has been stopped. I have started the patient on Lasix 80 mg IV every 6 hours with a net negative goal of 2.5 liters a day. He is on hydralazine 25 mg by mouth every 8 hours, insulin Levemir 5 units subcutaneous twice a day, insulin Lispro sliding scale, Ativan 2 mg IV as needed, Solu-Medrol 125 mg IV times one dose, multivitamins (MVIs), Protonix 40 mg by mouth daily, Potassium chloride 20 mEq by mouth times one dose was given today. He is on prednisone 40 mg by mouth daily, rosuvastatin 5 mg every night, and thiamine 100 mg by mouth twice a day. ASSESSMENT AND PLAN: 1. Hyponatremia. Patient has hypervolemic hyponatremia. He is in decompensated congestive heart failure. Patient is to be aggressively diuresed. I have also ordered urine osmolality and urine electrolytes as well. Thyroid stimulating hormone (TSH) level is within the acceptable range. Patient's fosinopril has also been stopped already because of acute kidney injury superimposed on chronic kidney disease. Sometimes angiotensin-converting enzyme (DURGA) inhibitors can be associated with syndrome of inappropriate diuretic hormone secretion (SIADH) as well. I would hold the DURGA inhibitors at this time until his congestive heart failure (CHF) and hyponatremia is resolved. If I am unable to improve his sodium level with aggressive diuresis, then patient will be given a dose of tolvaptan, which will help improve aquaresis and volume status as well. 2. Acute decompensated congestive heart failure. Patient's LV ejection fraction is not known at this time. He is significantly volume overloaded. He has been started on IV Lasix with net negative goal of 3 liters per 24 hours. Continue atenolol at this time. Because of possible association of Norvasc with pleural effusions, I have stopped the calcium channel oralia. I have started the patient on hydralazine 25 mg every 8 hours. DURGA inhibitor is on hold, but once the renal function starts improving, I will restart him on DURGA inhibitors. Echocardiogram results is pending. 3. Hypertension. Blood pressure is optimized with current regimen of hydralazine and beta oralia. Calcium channel oralia has been stopped because of pleural effusions. Optimizing of fluid status with Lasix would also help improve the blood pressure. 4. Diabetes mellitus, type 2. A1c is within the acceptable range. Patient is currently on insulin sliding scale and insulin Levemir. 5. Chronic obstructive pulmonary disease (COPD). I do not believe that patient has COPD at this time. He was already given Solu-Medrol, and he is currently on prednisone. Once his volume status gets better and his breathing improves, I will rapidly taper down the prednisone. Okay to give nebulizations at this time. I believe his shortness of breath and wheezing are cardiogenic. Okay to continue continuous positive airway pressure (CPAP) at night for obstructive sleep apnea. 6. Atrial fibrillation. Heart rate is controlled. Continue current dose of beta oralia and okay to continue Eliquis 2.5 mg twice a day. 7. Iron deficiency anemia. Patient's iron levels are low. I have started the patient on Venofer 200 mg IV daily for a total of three doses. Thank you for involving me in the care of this patient. I shall be happy to follow the patient along with you tomorrow morning. [facility]
--- NOTE | 2019-12-14 08:47 | IPN ---
DATE: 12/13/2019 SUBJECTIVE: Patient seen and examined at the bedside. Chart has been reviewed. He is afebrile. No complaints of chills, still complains of dyspnea on exertion, shortness of breath and increased lower extremity edema and weight gain. Patient said he is about 16 pounds overweight from baseline dry weight and says that his cardiac monitor, Dr. Brooks, was to arrange his coronary angiogram as an outpatient to further evaluate his dyspnea on exertion with prior history of CABG. Patient denies any chest pain, pressure, dizziness, or lightheadedness. He is still dyspneic at rest. OBJECTIVE: PHYSICAL EXAMINATION: VITAL SIGNS: Temperature 99.6, pulse 83, respiratory rate 17, blood pressure 147/89, 96% on room air. GENERAL: The patient is awake, alert and oriented to person, place and time, answering questions appropriately. Mild conversational dyspnea but able to complete six to seven words without difficulty. HEENT: Moist mucous membranes. NECK: Positive JVD. No thyromegaly or cervical lymphadenopathy. LUNGS: Diminished, bilateral crackles and coarse breath sounds. Air entry is equal. HEART: S1 and S2, irregularly irregular. ABDOMEN: Obese, soft, nontender and nondistended. Positive bowel sounds. EXTREMITIES: 2+ pitting edema. Diminished pulses. LABORATORY DATA: White count 9.6, hemoglobin 11, hematocrit 32, platelet count 204,000. Sodium 124, potassium 4.8, chloride 91, bicarbonate 23, BUN 33, creatinine 1.53 from previous creatinine of 1.24, glucose of 265, A1c is 6.4. Calcium 8.7. Troponin less than 0.02. BNP of 1401, respiratory panel is negative. Blood culture negative. CT of the chest on 12/13/2019: No pulmonary embolism, small to moderate bilateral pleural effusions, cardiomegaly, previous sternotomy and CABG surgery, prior cholecystectomy, upper abdominal ascites. Input 250, output of 400. Current weight is 117.7 kilos. ASSESSMENT AND PLAN: This is a 74-year-old male with a history of CAD/CABG in 1990, PTCA of the RCA in 1996, CHF, unknown ejection fraction, COPD, atrial fibrillation, CKD III, chronic hypertension, history of hyponatremia secondary to CHF, non-insulin dependent diabetes, obesity, dyslipidemia and prior cholecystectomy, presented to the Emergency Room with worsening shortness of breath, found to have congestive heart failure with bilateral effusions and hyponatremia with sodium level of 124. 1. Acute decompensated CHF with an unknown ejection fraction, currently on IV Lasix 80 mg IV q. 8 hourly managed by nephrology. Troponin is negative. Patient does have a history of CAD and CABG in the past with plans for a coronary angiogram by his cardiac monitor as outpatient. Patient does not want to have an inpatient transfer to [place] and prefers to have his sodium level and heart failure back to normal to be discharged home with outpatient coronary angiogram. 2. History of CAD/CABG and PTCA of the RCA in the past, troponin is currently negative. He is continued on his home dose of Crestor, Plavix. 3. Hypertension, uncontrolled, increased Hydralazine 25 mg q. 8 hourly, atenolol 50 b.i.d. with holding parameters for heart rate less than 60, sinus block or heart block, or sinus pause. Patients DURGA inhibitor has been discontinued. Norvasc has been discontinued. 4. History of smoking. Continued on Proventil. Patient did receive one dose of Solu-Medrol in the ER, continued on prednisone 40 daily with rapid taper. 5. Dyslipidemia, on Crestor. 6. Chronic atrial fibrillation, rate controlled on Atenolol, increase to 50 b.i.d. due to uncontrolled blood pressure with holding parameters, on chronic Eliquis, renally dosed b.i.d. 7. Diabetes. Continue on diabetic diet, consistent carbohydrate, insulin sliding scale with hypoglycemic protocol and coverage, for better glycemic control start on Levemir insulin b.i.d. with holding parameters for a glucose of less than 180. 8. Chronic hyponatremia most likely secondary to congestive heart failure, currently on Lasix, monitor q. 6 hourly, metabolic panel, currently asymptomatic. No complaints of headache, changes in vision or seizure activity. 9. CKD Stage III at baseline creatinine. 10. COPD, stable. MTDD
[2019-12-14] MEDS: DOCUSATE SODIUM 100 MG CAP PO SCH ×2 (09:00→21:00)
[2019-12-14] MEDS: LEVEMIR (INSULIN DETEMIR) 1 UNITS/0.01ML SC SCH ×2 (09:11→21:35)
[2019-12-14] MEDS: HumaLOG INSULIN (NovoLOG) PER UNIT SC SCH ×4 (09:11→21:00)
[2019-12-14] MEDS: PANTOPRAZOLE 40MG TAB (PROTONIX) PO SCH (09:13)
[2019-12-14] MEDS: MULTIVITAMINS/MINERALS THERAP 1 TAB PO SCH (09:14)
[2019-12-14] MEDS: APIXABAN 2.5 MG TAB (ELIQUIS) PO SCH ×2 (09:14→21:34)
[2019-12-14] MEDS: EZETIMIBE 10 MG TAB (ZETIA) PO SCH (09:15)
[2019-12-14] MEDS: THIAMINE 100 MG TAB PO SCH ×2 (09:15→21:34)
[2019-12-14] MEDS: FOLIC ACID 1 MG TAB PO SCH (09:15)
[2019-12-14] MEDS: CLOPIDOGREL 75 MG TAB PO SCH (09:16)
[2019-12-14] MEDS: predniSONE 20 MG TAB PO SCH (09:24)
[2019-12-14] MEDS: atenoloL 50 MG TAB PO SCH (09:26)
--- NOTE | 2019-12-14 10:54 | ECHO ---
DATE OF PROCEDURE: 12/13/2019 Age: 74 Gender: Male Height: 175 cm Weight: 118 kg REFERRING PHYSICIAN: Bea Anna MD INDICATION: Dyspnea, unspecified. MEASUREMENTS: 2D Measurements: Aortic root 3.5 cm Left atrium 4.4 cm Left atrial volume index 51 Interventricular septum 1.18 cm Posterior wall 1.15 cm Left ventricle diastole 5.0 cm Inferior vena cava 2.7 cm with marked reduction of respiratory variation. Doppler Measurements: No aortic stenosis No aortic regurgitation Aortic valve velocity 163 cm/s LVOT velocity 92.5 cm/s LVOT VTI 20.1 cm Very mild mitral regurgitation Mitral E velocity 127 cm/s Mitral A velocity 46.4 cm/s Mitral deceleration time 127 msec Mild tricuspid regurgitation Estimated right ventricular systolic pressure 53 mmHg Estimated right atrial pressure 20 mmHg Mild pulmonic regurgitation MITRAL ANNULAR TISSUE DOPPLER E prime septal 7.0 cm/s, E prime lateral 9.3 cm/s DESCRIPTION: Rhythm was sinus. This was a moderately technically difficult echocardiogram. No pericardial effusion. CONCLUSIONS: 1. Normal left ventricle internal dimensions and wall thickness. Normal regional LV wall motion and wall thickening. Normal LV systolic function. LVEF 65% by visual estimate. Restrictive LV diastolic filling pattern (grade 3 or 4 LV diastolic dysfunction). 2. Severe left atrial dilatation by left atrial volume index. 3. Mild aortic valve sclerosis of a 3-cuspid aortic valve. No aortic regurgitation. 4. Suggestive of at least moderate elevation of estimated right ventricle systolic pressure (at least 53 mmHg). Mildly dilated right ventricle with normal RV systolic function. Severe atrial dilatation. Inferior vena cava plethora. Suggestive of elevated central venous pressure of at least 20 mmHg. 5. Mild mitral annular calcification. Very mild mitral regurgitation. 6. No pericardial effusion. MTDD
[2019-12-14] MEDS ORDERED: POTASSIUM CHLORIDE 10 MEQ SR TABLET PO ONE (12:00)
[2019-12-14 13:07] LABS: CALCIUM LEVEL 8.7 MG/DL (8.8-10.2); CREATININE FOR GFR 1.76 MG/DL (0.70-1.30); GLOMERULAR FILTRATION RATE 40.3 (>42); POTASSIUM SERUM 4.1 MEQ/L (3.5-5.1)
[2019-12-14] MEDS: IRON SUCROSE 200 MG in NS 100 ML IV SCH (14:39)
[2019-12-14] MEDS ORDERED: FLUBLOK(EGG FREE)(QUAD)INFLUENZA VACC 0.5ML SYRINGE 18YRS & OLDER IM ONE (17:00)
[2019-12-14 18:35] LABS: CALCIUM LEVEL 8.8 MG/DL (8.8-10.2); CREATININE FOR GFR 1.84 MG/DL (0.70-1.30); GLOMERULAR FILTRATION RATE 38.3 (>42); POTASSIUM SERUM 4.6 MEQ/L (3.5-5.1)
[2019-12-14] MEDS: ROSUVASTATIN 10 MG TAB (CRESTOR) PO SCH (21:34)
[2019-12-15] VITALS (20 sets, daily range): BP systolic 132–192; BP diastolic 63–92; O2SAT 89–97
[2019-12-15] MEDS: IPRATROPIUM 0.5MG/ALBUTEROL 2.5MG INH SOL UD 3ML (DUONEB) NEB SCH ×4 (01:48→19:13)
[2019-12-15] MEDS: FUROSEMIDE 100MG/10ML VIAL (J1940) IV SCH ×3 (05:14→17:14)
[2019-12-15] MEDS: **hydrALAZINE HCL** 25 MG TAB PO SCH ×3 (05:14→21:46)
[2019-12-15] MEDS: ISOSORBIDE DIN. (ISORDIL) 20 MG TAB PO SCH ×3 (06:00→21:45)
[2019-12-15 06:23] LABS: CALCIUM LEVEL 8.6 MG/DL (8.8-10.2); CREATININE FOR GFR 1.71 MG/DL (0.70-1.30); GLOMERULAR FILTRATION RATE 41.6 (>42); POTASSIUM SERUM 3.7 MEQ/L (3.5-5.1)
[2019-12-15] MEDS: PANTOPRAZOLE 40MG TAB (PROTONIX) PO SCH ×2 (09:00→09:02)
[2019-12-15] MEDS: LEVEMIR (INSULIN DETEMIR) 1 UNITS/0.01ML SC SCH ×2 (09:00→21:58)
[2019-12-15] MEDS: DOCUSATE SODIUM 100 MG CAP PO SCH ×2 (09:00→21:47)
[2019-12-15] MEDS: FOLIC ACID 1 MG TAB PO SCH (09:01)
[2019-12-15] MEDS: atenoloL 50 MG TAB PO SCH (09:01)
[2019-12-15] MEDS: MULTIVITAMINS/MINERALS THERAP 1 TAB PO SCH (09:01)
[2019-12-15] MEDS: EZETIMIBE 10 MG TAB (ZETIA) PO SCH (09:01)
[2019-12-15] MEDS: THIAMINE 100 MG TAB PO SCH (09:01)
[2019-12-15] MEDS: APIXABAN 2.5 MG TAB (ELIQUIS) PO SCH ×2 (09:01→21:45)
[2019-12-15] MEDS: HumaLOG INSULIN (NovoLOG) PER UNIT SC SCH ×4 (09:01→21:58)
[2019-12-15] MEDS: predniSONE 20 MG TAB PO SCH (09:02)
[2019-12-15] MEDS: CLOPIDOGREL 75 MG TAB PO SCH (09:02)
[2019-12-15] MEDS ORDERED: POTASSIUM CHLORIDE 10 MEQ SR TABLET PO ONE ×2 (09:45→21:45)
--- NOTE | 2019-12-15 10:09 | IPN ---
DATE: 12/14/2019 SUBJECTIVE: Patient seen and examined at the bedside. Chart has been reviewed. Denies any chest pain, pressure, or tightness. Shortness of breath is significantly improved since he diuresed over a liter out overnight. No paroxysmal nocturnal dyspnea (PND) or orthopnea. Continues to complain of lower extremity edema, 2+. No dyspnea on exertion. No dizziness or lightheadedness. OBJECTIVE: PHYSICAL EXAMINATION: VITAL SIGNS: Temperature 98.1, pulse 89, respiratory rate 18, blood pressure 135/72, 93% on room air. GENERAL: Patient is awake, alert, oriented times three, answering questions appropriately. Decreased jugular venous distention (JVD). No thyromegaly. No cervical lymphadenopathy. Moist mucous membranes. Anicteric sclerae. No jaundice. No conversational dyspnea or use of respiratory accessory muscles. No tripod postioning. LUNGS: Diminished but Clear to auscultation. No wheezing or rales. HEART: S1, S2. Irregularly irregular. ABDOMEN: Obese, soft, nontender, nondistended. EXTREMITIES: Pitting edema 2+ to the sacrum. Intake and output: Input of 995, output of 1120, -130. Previous weight at 117.7 kg, current weight 118.7 kg. LABORATORY DATA: December 13 metabolic panel: Sodium 131 from previous sodium of 127, potassium 4.1, chloride 97, bicarbonate 24, BUN 42, creatinine 1.72, previous creatinine 1.5 on admission, glucose of 142. Respiratory panel is negative. Blood culture is negative. CT chest 12/13/2019: Small to moderate bilateral pleural effusions. No aortic dissection or leakage. No aortic aneurysm. No pulmonary embolism, cardiomegaly. Previous sternotomy and coronary artery bypass graft (CABG) surgery. Previous cholecystectomy. Some upper abdominal ascites. Echocardiogram read by Dr. Zeus Brooks: Ejection fraction 65% with normal left V systolic function. Restrictive left ventricular (LV) diastolic filling pattern, grade 3 or 4 LV diastolic dysfunction. Severe left atrial dilatation by left atrial volume index. Moderate elevation right ventricular systolic pressure, moderately dilated right ventricle with normal right ventricular (RV) systolic function. Very mild mitral regurgitation. No pericardial effusion. ASSESSMENT AND PLAN: This is a 74-year-old male with a history of diastolic heart failure, ejection fraction (EF) of 65%, chronic obstructive pulmonary disease COPD), coronary artery disease (CAD), coronary artery bypass graft (CABG) in 1990, percutaneous transluminal coronary angioplasty (PTCA) of the right coronary artery (RCA) in 1996, chronic kidney disease (CKD), stage III, atrial fibrillation, chronic, hypertension, hyponatremia, [id number] diabetes, dyslipidemia, obesity, admitted on December 11 due to worsening shortness of breath, found to be in decompensated congestive heart failure. IMPRESSION: 1. Acute decompensated congestive heart failure (CHF), diastolic dysfunction with preserved systolic ejection function. Patient is currently being diuresed by nephrology. Has been net negative but still with slight increase in weight. Patient says that he is over 16 pounds overweight by water. He is on strict intake and output:, daily weights, fluid restriction. Currently receiving intravenous Lasix 80 mg every 6 hours with good diuresis. 2. CAD/CABG with acute CHF exacerbation. Patient was due to have coronary angiograph as outpatient. Will speak with Dr. Brooks on the day of discharge to see if he needs inpatient transfer for coronary angiogram to evaluate the coronary vessels. At this time he is resumed back on his home dose of Plavix, ezetimibe, apixaban, Crestor. 3. History of COPD, compensated, on albuterol 2.5 every 1 hour as needed and prednisone rapid taper. 4. Iron deficiency, on iron management by nephrology. 5. Hypertension, on home dose of atenolol 50 daily, hydralazine 25 every 8, and Lasix 80 IV every 6 hours. DISPOSITION: Two to three days pending diuresis. Awaiting net-negative balance and euvolemia. Then defer to Dr. Brooks if patient should be transferred for inpatient catheterization versus outpatient referral for coronary angiogram Gerardo. JAIME
[2019-12-15] MEDS ORDERED: metOLazone 5 MG TAB PO ONE (11:00)
[2019-12-15] MEDS: IRON SUCROSE 200 MG in NS 100 ML IV SCH (15:23)
[2019-12-15] MEDS: ROSUVASTATIN 10 MG TAB (CRESTOR) PO SCH (21:46)
[2019-12-16] VITALS (13 sets, daily range): BP systolic 140–170; BP diastolic 66–88; O2SAT 93–97
[2019-12-16] MEDS: IPRATROPIUM 0.5MG/ALBUTEROL 2.5MG INH SOL UD 3ML (DUONEB) NEB SCH ×4 (01:39→19:35)
[2019-12-16 05:40] LABS: BASO % 0.1 % (0.0-1.0); HEMATOCRIT 31.8 % (42.0-52.0); HEMOGLOBIN 10.6 g/dl (13.5-17.5); LYMPH # 0.9 10^3/uL (1.5-5.0); LYMPH % 8.3 % (24.0-44.0); MEAN CORPUSCULAR HEMOGLOBIN 32.7 pg (27.0-33.0); MEAN CORPUSCULAR HGB CONC 33.3 g/dl (32.0-36.5); MEAN CORPUSCULAR VOLUME 98.1 fl (80.0-96.0); MONO # 1.5 10^3/uL (0.0-0.8); NEUTROPHILS # 8.1 10^3/uL (1.5-8.5); NEUTROPHILS % 76.5 % (36.0-66.0); PLATELET COUNT, AUTOMATED 219 10^3/uL (150-450); RED BLOOD COUNT 3.24 10^6/uL (4.30-6.10); WHITE BLOOD COUNT 10.6 10^3/uL (4.0-10.0)
[2019-12-16 05:57] LABS: ALBUMIN 3.6 GM/DL (3.2-5.2); CALCIUM LEVEL 8.7 MG/DL (8.8-10.2); CREATININE FOR GFR 1.61 MG/DL (0.70-1.30); GLOMERULAR FILTRATION RATE 44.6 (>42); MAGNESIUM LEVEL 2.9 MG/DL (1.8-2.4); PHOSPHORUS LEVEL 3.1 MG/DL (2.5-4.9)
[2019-12-16] MEDS: **hydrALAZINE HCL** 25 MG TAB PO SCH ×3 (06:19→21:36)
[2019-12-16] MEDS: ISOSORBIDE DIN. (ISORDIL) 20 MG TAB PO SCH ×3 (06:19→21:37)
[2019-12-16] MEDS: FUROSEMIDE 100MG/10ML VIAL (J1940) IV SCH ×2 (06:23)
[2019-12-16] MEDS: DOCUSATE SODIUM 100 MG CAP PO SCH ×3 (09:00→21:00)
[2019-12-16] MEDS ORDERED: predniSONE 20 MG TAB PO SCH (09:00)
[2019-12-16] MEDS: CLOPIDOGREL 75 MG TAB PO SCH (09:06)
[2019-12-16] MEDS: PANTOPRAZOLE 40MG TAB (PROTONIX) PO SCH (09:06)
[2019-12-16] MEDS: MULTIVITAMINS/MINERALS THERAP 1 TAB PO SCH (09:06)
[2019-12-16] MEDS: EZETIMIBE 10 MG TAB (ZETIA) PO SCH (09:07)
[2019-12-16] MEDS: APIXABAN 2.5 MG TAB (ELIQUIS) PO SCH ×2 (09:07→21:36)
[2019-12-16] MEDS: FOLIC ACID 1 MG TAB PO SCH (09:07)
[2019-12-16] MEDS: atenoloL 50 MG TAB PO SCH (09:07)
[2019-12-16] MEDS: predniSONE 20 MG TAB PO SCH ×2 (09:07→21:36)
[2019-12-16] MEDS: HumaLOG INSULIN (NovoLOG) PER UNIT SC SCH ×4 (09:08→21:00)
[2019-12-16] MEDS: LEVEMIR (INSULIN DETEMIR) 1 UNITS/0.01ML SC SCH ×2 (09:08→21:38)
[2019-12-16] MEDS ORDERED: metOLazone 2.5 MG TAB PO ONE (10:00)
[2019-12-16] MEDS ORDERED: POTASSIUM CHLORIDE 10 MEQ SR TABLET PO ONE (10:00)
[2019-12-16] MEDS: SPIRONOLACTONE 25 MG TAB PO SCH (10:25)
--- NOTE | 2019-12-16 10:49 | IPN ---
DATE: 12/14/2019 SUBJECTIVE: Patient was seen and examined at the bedside today morning. Patient reports that his shortness of breath is significantly getting better. He was started on IV diuretics yesterday. His hyponatremia is also getting better. Clinically, patient is improving today as compared with yesterday. OBJECTIVE: Vital signs: Temperature is 97.4 degrees Fahrenheit, blood pressure was 150/78, pulse is 80, respiratory rate of 20, saturating 96% on room air. Intake and output: Urine output recorded is 1.1 liters yesterday, 800 mL so far today since overnight. Weight in the bed scale is 118.7 kg. PHYSICAL EXAMINATION: General: Patient is awake, alert, oriented times three, sitting up in the bed, no apparent distress. Head and neck exam: Extraocular muscles intact. Pupils equally round and reactive to light. Neck is supple. He has significantly elevated jugular venous distension (JVD). Cardiovascular: S1, S2, regular rate. 2+ edema of the bilateral lower extremities. Respiratory: Mildly decreased breath sounds at the bases with decreased vocal resonance at the bases. Abdomen: Soft, positive bowel sounds, nontender, no organomegaly. Musculoskeletal: No clubbing or cyanosis. 2+ edema of the bilateral lower extremities. Central nervous system (RN LACTATION): No focal deficits. Power is 5/5 in all extremities. LABORATORY REVIEW: Urine random osmolality was 292 yesterday, random creatinine was 62.3, random sodium was less than 10, potassium was 18.7, and random chloride was less than 10 as well. BMP done today morning showed sodium 134, potassium 4.6, chloride 99, bicarbonate 23, BUN 46, creatinine is 1.8, calcium is 8.8. CURRENT INPATIENT MEDICATIONS: Patients medications were all reviewed by myself. He continues to be on Lasix 80 mg IV every 6 hours. He was given a dose of oral potassium today by myself. Atenolol has been changed to 50 mg by mouth daily and he continues to get IV Venofer as well. ASSESSMENT AND PLAN: 1. Hyponatremia. Patient has hypervolemia hyponatremia. Sodium level is improving with IV diuretics, it is above 131 now, we no longer need to continue the patients basic metabolic panel (BMP) check every 6 hours. 2. Acute decompensated congestive heart failure. Latest echocardiogram is not available. However, patient is tolerating Lasix. I am reluctant to use metolazone in this patient because he has severe hyponatremia on arrival. 3. Hypertension. Blood pressure is controlled with current dose of atenolol, hydralazine, and diuretics. Angiotensin-converting enzymes (DURGA) inhibitors will be restarted once renal function gets better. 4. Diabetes mellitus type 2. Continue insulin sliding scale and Levemir. 5. Atrial fibrillation. Heart rate is controlled with atenolol. Continue current dose of Eliquis. 6. Iron deficiency anemia. Patient is getting IV Venofer. MTDD
--- NOTE | 2019-12-16 11:00 | IPN ---
DATE: 12/15/2019 SUBJECTIVE: The patient was seen and examined at the bedside. Chart has been reviewed. Input of 730 last night, output of 1,400, negative 670. The patient is currently negative balance from admission. Admission weight of 117.7 kg. Current weight of 115.1 kg with overnight output of 2.5 liters. He currently still complains of dyspnea on exertion while ambulating, required about 5 minutes to recover. When working with Physical Therapy denies any chest pain, pressure, or tightness, lightheadedness or dizziness. The patient is requesting for discharge home prior to coronary angiogram, but is open to whatever Dr. Cast recommends once he is euvolemic. OBJECTIVE: PHYSICAL EXAMINATION: VITAL SIGNS: Temperature 97.1, pulse 82, respiratory rate 18, blood pressure 176/82, oxygen saturation 95% on room air. GENERAL APPEARANCE: The patient has ecchymosis along the chin and neck area. No complaints of respiratory distress. NECK: No thyromegaly or cervical lymphadenopathy. Decreased JVD. LUNGS: Clear to auscultation, no wheezing or rales. HEART: S1, S2, irregularly irregular. ABDOMEN: Obese, soft, nontender, nondistended. EXTREMITIES: 1+ bilateral pitting edema. LABORATORY DATA: Sodium 134, potassium 3.7, chloride 100, bicarbonate 25, BUN 45, creatinine 1.7, glucose of 137. Respiratory panel is negative. ASSESSMENT AND PLAN: This is a 74-year-old male with history of diastolic heart failure, EF of 65%, COPD, coronary artery disease, CABG in 1990, PTC of the right coronary in 1996, CKD stage 3, atrial fibrillation, chronic, hypertension, hyponatremia, non insulin dependent diabetes, dyslipidemia, obesity, admitted on December 11 due to worsening shortness of breath initially with exertion and eventually at rest. Found to be in decompensated congestive heart failure with severe hyponatremia with sodium level of 124. IMPRESSION: 1. Acute decompensated congestive heart failure, diastolic dysfunction with preserved systolic function. The patient is currently managed by Nephrology for strict I.s and O.s, daily weights and fluid restriction. The patient has remained negative for the past 3 days since he has been admitted. He has symptomatic improvement in his shortness of breath but still is a little dyspneic with exertion. He is currently on IV Lasix 80 mg IV q. 6 hourly and remains in good net negative balance. Troponin is negative. The patient is requesting for discharge home once he is euvolemic and elective follow up at [facility] for coronary angiogram to evaluate his coronary vessels. 2. Cpzwe-jf-[id number] renal failure, stage 3, currently managed by Nephrology with strict I.s and O.s, daily weights, on Lasix. 3. Hypertension uncontrolled. The patient refused to take Atenolol 50 twice daily due to prior episodes of bradycardia and hypotension. He is currently on Isosorbide, Hydralazine, Lasix and Atenolol at his home dose of 50 mg daily. Once he is euvolemic and renal function is improved, may consider putting an evi inhibitor. 4. Chronic obstructive pulmonary disease, on tapering dose of Prednisone, not on home oxygen at baseline. 5. Anemia of chronic disease due to renal insufficiency, on iron IV daily. 6. History of coronary artery disease, CABG, continued on home dose of Plavix, Metoprolol and Crestor. 7. Dyslipidemia on chronic Crestor. 8. Obesity BMI of 37.5, complicating care 9. Disposition await euvolemia 2-3 more days. MTDD
--- NOTE | 2019-12-16 11:03 | REPVR ---
PROCEDURE INFORMATION: Exam: XR Chest, 1 View Exam date and time: 12/16/2019 8:13 AM Age: 74 years old Clinical indication: Shortness of breath TECHNIQUE: Imaging protocol: XR of the chest Views: 1 view. COMPARISON: 1. CR Chest, 2 view PA, Lat 12/12/2019 10:[address] ANGIO CHEST 12/13/2019 2:07:01 AM FINDINGS: Tubes, catheters and devices: ECG leads/contacts overlie and partially obscure the anatomy. Lungs: No pulmonary consolidation or edema. Pleural space: Small left pleural effusion. No evidence of right pleural effusion. No pneumothorax. Heart/Mediastinum: The cardiac silhouette is stably severely diffusely enlarged. Status post coronary arterial bypass grafting. Vasculature: Aortic atherosclerotic calcification. Bones/joints: Median sternotomy closure devices present. IMPRESSION: 1. Stable severe cardiomegaly. 2. Improved pleural effusions. A small left pleural effusion persists. Electronically signed by: Jason Garcia On 12/16/2019 11:03:15 AM
[2019-12-16] MEDS ORDERED: FLUBLOK(EGG FREE)(QUAD)INFLUENZA VACC 0.5ML SYRINGE 18YRS & OLDER IM ONE (12:00)
[2019-12-16] MEDS: FUROSEMIDE 40MG/4ML VIAL (J1940) IV SCH (15:31)
--- NOTE | 2019-12-16 15:55 | IPN ---
DATE: 12/15/2019 SUBJECTIVE: Patient was seen and examined at the bedside today morning. He reports that he is feeling the same as yesterday. His hyponatremia is slightly getting better. He is not diuresing much despite being on Lasix 80 mg IV every 6 hours. Renal function is stable since yesterday with a creatinine of 1.7. OBJECTIVE: Vital signs: Temperature is 98.8 degrees Fahrenheit, blood pressure 132/63, pulse is 86, respiratory rate of 16, saturating 94% on room air. Intake and output: Urine output recorded is 1.4 liters yesterday and he had made almost 1 liter of urine when I saw him in the morning. Weight in the bed scale is 115.1 kg. PHYSICAL EXAMINATION: General: Patient is awake, alert, oriented times three, sitting up in the bed, no apparent distress. Head and neck exam: Extraocular muscles intact. Pupils equally round and reactive to light. Mucous membranes are moist. Neck is supple. There is mildly elevated jugular venous distension (JVD). Cardiovascular: S1, S2, regular rate. 2+ edema of the bilateral lower extremities. Respiratory: Chest is clear to auscultation bilaterally. Decreased breath sounds at the bases. No active rales or rhonchi. Abdomen: Soft, obese, positive bowel sounds, nontender, no organomegaly. Musculoskeletal: No clubbing or cyanosis. Pulses are 2+. Central nervous system (CASING CREW): No focal deficits. Power is 5/5 in all extremities. LABORATORY REVIEW: There is no CBC available for the last 2 days. BMP done today morning showed sodium 134, potassium 3.7, chloride 100, bicarbonate 25, BUN 45, creatinine is 1.7, it was 1.8 yesterday, calcium is 8.6. CURRENT INPATIENT MEDICATIONS: Patients medications were all reviewed by myself. He has finished IV Venofer today. He continues to be on Lasix 80 mg IV every 6 hours. I have ordered one dose of metolazone 5 mg by mouth times one dose and he has been started on isosorbide dinitrate 20 mg by mouth every 8 hours with holding parameters. ASSESSMENT AND PLAN: 1. Hyponatremia. Patient has hypervolemic hyponatremia which is responding to the diuretics. I have added metolazone today for sequential nephron blockade to improve his diuresis. 2. Acute decompensated diastolic congestive heart failure. Patients echocardiogram report was reviewed. He has grade 3-4 diastolic dysfunction. Continue aggressive diuresis with Lasix and metolazone was added today. Continue current antihypertensive regimen. 3. Hypertension with hypertensive heart disease. Patient continues to be on hydralazine and atenolol. Angiotensin converting enzyme (DURGA) inhibitor was held because of acute kidney injury and he is being aggressively diuresed. Isosorbide dinitrate 20 mg every 8 hours was added today morning. 4. Iron deficiency anemia. Patient finished 3 days of IV Venofer. Complete blood count (CBC) will be checked in the morning. [facility]
[2019-12-16] MEDS ORDERED: CALCIUM GLUCONATE 1,000 MG in D5W MINI-BAG PLUS 100 ML IV ONE (17:30)
[2019-12-16] MEDS ORDERED: CALCIUM CARBONATE 500 MG CHEW U/D PO ONE (17:30)
--- NOTE | 2019-12-16 17:43 | IPNPDOC ---
Text Note Date of Service The patient was seen on 12/16/19. NOTE SUBJECTIVE: Patient was seen and examined today at bedside. He has noticed some improvement in his leg swelling and shortness of breath. He has started to have muscle cramping. He states this happens when he gets dehydrated. OBJECTIVE: PHYSICAL EXAMINATION: VITAL SIGNS: Please see below. GENERAL: Alert, laying comfortably in bed, in no acute distress HEENT: NC, AT, moist mucous membranes, mildly elevated JVD. CARDIOVASCULAR: RRR, normal S1 and S2 RESPIRATORY: Decreased breath sounds in bilateral lung bases. ABDOMINAL: Soft, nontender, nondistended EXTREMITIES: 2+ pitting edema noted in bilateral lower extremities. ASSESSMENT/PLAN: 74 year old male who presented with hypovolemic hyponatremia and acute decompensated diastolic CHF. 1. Hyponatremia. Patient has hypervolemic hyponatremia which is responding to the diuretics. Continue with lasix and metolazone. Spironolactone added today as well. Decreased frequency of lasix doses due to muscle cramping. 2. Acute decompensated diastolic congestive heart failure. Patients echocardiogram report was reviewed. He has grade 3-4 diastolic dysfunction. Continue diuresis with Lasix and metolazone, also spironolactone was added today. Frequency of lasix injections was decreased today due to muscle cramping. Continue current antihypertensive regimen. 3. Hypertension with hypertensive heart disease. Patient continues to be on hydralazine and atenolol. Angiotensin converting enzyme (DURGA) inhibitor was held because of acute kidney injury and he is being aggressively diuresed. Continue isosorbide dinitrate 20 mg every 8 hours, which was added during this admission. 4. Iron deficiency anemia. Patient finished 3 days of IV Venofer. Hg stable at 10.6. Thank you for the consultation on this patient, we will continue to follow along. VS,Fishbone, I+O VS, Fishbone, I+O Laboratory Tests 12/16/19 05:06 Vital Signs Date Time Temp Pulse Resp B/P (MAP) Pulse Ox O2 Delivery O2 Flow Rate FiO2 12/16/19 16:00 98.1 83 19 170/88 (115) 95 Room Air 12/13/19 06:00 1.0 I&O- Last 24 Hours up to 6 AM 12/16/19 06:00 Intake Total 1260 ml Output Total 5675 ml Balance -4415 ml GME ATTESTATION GME ATTESTATION My faculty preceptor for this patient encounter was physically present during the encounter and was fully available. All aspects of the patient interview, examination, medical decision making process, and medical care plan development were reviewed and approved by the faculty preceptor. The faculty preceptor is aware and concurs with the plan as stated in the body of this note and will attest to such by his/her cosignature. ATTENDING NOTE Hyponatremia HFpEF Iron def anemia HTN with Hypertensive heart disease. Cont Diuretic for now. IV iron for anemia. DURGA/ARB on hold due to aggressive diuresis. SHEREEN NEGRON D.O. Dec 16, 2019 17:43 ALIE LUCAS MD Dec 18, 2019 09:33
[2019-12-16] MEDS: ROSUVASTATIN 10 MG TAB (CRESTOR) PO SCH (21:35)
[2019-12-17] VITALS: BP 148/80
[2019-12-17] MEDS: IPRATROPIUM 0.5MG/ALBUTEROL 2.5MG INH SOL UD 3ML (DUONEB) NEB SCH ×4 (02:00→20:00)
[2019-12-17 04:00] VITALS: BP 131/69
[2019-12-17 04:12] LABS: IONIZED CALCIUM 4.7 MG/DL (4.5-5.3)
[2019-12-17 04:23] LABS: HEMATOCRIT 32.8 % (42.0-52.0); HEMOGLOBIN 11.2 g/dl (13.5-17.5); MEAN CORPUSCULAR HEMOGLOBIN 33.3 pg (27.0-33.0); MEAN CORPUSCULAR HGB CONC 34.1 g/dl (32.0-36.5); MEAN CORPUSCULAR VOLUME 97.6 fl (80.0-96.0); PLATELET COUNT, AUTOMATED 230 10^3/uL (150-450); RED BLOOD COUNT 3.36 10^6/uL (4.30-6.10); WHITE BLOOD COUNT 10.5 10^3/uL (4.0-10.0)
[2019-12-17 04:38] LABS: CALCIUM LEVEL 9.8 MG/DL (8.8-10.2); CREATININE FOR GFR 1.62 MG/DL (0.70-1.30); GLOMERULAR FILTRATION RATE 44.3 (>42); MAGNESIUM LEVEL 2.5 MG/DL (1.8-2.4); POTASSIUM SERUM 4.2 MEQ/L (3.5-5.1)
[2019-12-17] MEDS: ISOSORBIDE DIN. (ISORDIL) 20 MG TAB PO SCH ×3 (05:14→17:44)
[2019-12-17] MEDS: **hydrALAZINE HCL** 25 MG TAB PO SCH ×3 (05:14→21:16)
[2019-12-17] MEDS ORDERED: ALDA25TA2 PO (07:37)
[2019-12-17] MEDS ORDERED: INSUDET SC (07:37)
[2019-12-17] MEDS ORDERED: ISOS20TAB PO (07:37)
[2019-12-17] MEDS ORDERED: HYDR25TA PO (07:37)
[2019-12-17] MEDS ORDERED: metOLazone 2.5 MG TAB PO ONE (07:45)
[2019-12-17] MEDS: FOLIC ACID 1 MG TAB PO SCH (07:58)
[2019-12-17] MEDS: EZETIMIBE 10 MG TAB (ZETIA) PO SCH (07:58)
[2019-12-17] MEDS: PANTOPRAZOLE 40MG TAB (PROTONIX) PO SCH (07:58)
[2019-12-17] MEDS: MULTIVITAMINS/MINERALS THERAP 1 TAB PO SCH (07:58)
[2019-12-17] MEDS: CLOPIDOGREL 75 MG TAB PO SCH (07:58)
[2019-12-17] MEDS: predniSONE 20 MG TAB PO SCH ×2 (07:59→21:16)
[2019-12-17] MEDS: APIXABAN 2.5 MG TAB (ELIQUIS) PO SCH ×2 (07:59→21:16)
[2019-12-17 08:00] VITALS: BP 140/80
[2019-12-17] MEDS: SPIRONOLACTONE 25 MG TAB PO SCH (08:01)
--- NOTE | 2019-12-17 08:01 | IPN ---
DATE: 12/16/2019 SUBJECTIVE: Patient denies any chest pain, pressure, tightness, lightheadedness or dizziness. No chest pain, pressure or tightness. OBJECTIVE PHYSICAL EXAMINATION: Vitals: Temperature 97.6, pulse 85, respiratory rate 19, blood pressure 140/85, 97% on room air. Generally: Patient is awake, alert and oriented. Answers questions appropriately. Neck: No JVD. No thyromegaly. No cervical lymphadenopathy. Dry mucous membranes. He has ecchymosis and bruising underneath the chin and along the neck area. No carotid bruits. Lungs: Diminished but clear to auscultation. No wheezing or rales. Heart: S1, S2, irregularly irregular. Abdomen: Obese, soft, nontender, nondistended. Extremities: 2+ pitting edema. LABORATORY DATA: White count 10, hemoglobin 10, hematocrit 31, platelet count 219,000. Sodium 133, potassium 4, chloride 99, bicarb 29, BUN 40, creatinine 1.6, glucose 140. Magnesium 2.9. Input: 1140. Output: 5975 negative 4835 yesterday. Current weight is 111.4 kg; admission weight of 117.7 kg; was a 13 pound weight loss since admission. IMAGING STUDIES: Chest x-ray from 12/16/2019; stable cardiomegaly, improved pleural effusion, small left pleural effusion persists. CURRENT HOSPITAL MEDICATIONS: Spironolactone, prednisone, Isosorbide, Atenolol, Hydralazine, Lasix, Protonix, folic acid, multivitamin, Plavix, Zetia, Levemir insulin, insulin sliding scale, Colace, Apixaban, Crestor, Combivent, Tylenol, hyperglycemic protocol, Proventil. ASSESSMENT AND PLAN: This is a 74-year-old male with history of chronic diastolic heart failure, CABG in 1990, PCTA of the right coronary in 1996, COPD, ejection fraction 65%, chronic kidney disease stage 3, atrial fibrillation on chronic Eliquis, hypertension, hyponatremia, noninsulin dependent diabetes, obesity, admitted on 12/12/2019 due to worsening shortness of breath initially with exertion and eventually at rest, found to be in decompensated CHF with severe hyponatremia and sodium level of 124. ACTIVE ISSUES: 1. Decompensated CHF, diastolic dysfunction and preserved systolic function: Troponins were negative. His magnetic observer artificial insemination technician today recommended inpatient transfers to [facility] for repeat angiogram due to history of CAD and CABG and new onset exacerbation of CHF. Patient is currently on fluid restriction, strict I's and Os, and has lost 13 pounds of weight since admission. Diuresed by nephrology with Spironolactone and Lasix I.V. every 8 hours along with Zaroxolyn. Patients sodium level appears to be stable. He is mentally unchanged. 2. Hyponatremia secondary to congestive heart failure: Currently being diuresed with Lasix. Sodium level 134 and from admission 124. No complaints of headache, changes in vision or confusion. 3. Hypertension: Currently on Atenolol, Lasix, Hydralazine and Isosorbide, managed by nephrology. 4. COPD: Currently on home dose of prednisone 20 b.i.d. 5. Obesity complicating his care: BMI of 37. 6. Anemia of chronic kidney disease and renal failure: On iron. 7. History of CAD/CABG: On Plavix, Metoprolol and Crestor. Patient is to have coronary angiogram done after he is euvolemic. plan to transfer to [facility]. 8. Dyslipidemia: On chronic Crestor. DISPOSITION: Transfer to [facility] after patient is euvolemic either Thursday or Thursday. BREND
[2019-12-17] MEDS: atenoloL 50 MG TAB PO SCH (08:04)
[2019-12-17] MEDS: DOCUSATE SODIUM 100 MG CAP PO SCH ×2 (08:05→21:00)
[2019-12-17] MEDS: HumaLOG INSULIN (NovoLOG) PER UNIT SC SCH ×4 (08:05→21:00)
[2019-12-17] MEDS: LEVEMIR (INSULIN DETEMIR) 1 UNITS/0.01ML SC SCH ×2 (08:05→21:15)
[2019-12-17] MEDS: FUROSEMIDE 40MG/4ML VIAL (J1940) IV SCH ×3 (09:05→16:00)
--- NOTE | 2019-12-17 09:12 | REPVR ---
PROCEDURE INFORMATION: Exam: XR Chest, 2 Views Exam date and time: 12/17/2019 8:55 AM Age: 74 years old Clinical indication: Other: SOB; Additional info: SOB chf TECHNIQUE: Imaging protocol: XR of the chest Views: 2 views. COMPARISON: CR PORTABLE CHEST X-RAY 12/16/2019 8:10 AM FINDINGS: Lungs: There is mild hyperinflation. Pleural space: No pleural effusion. No pneumothorax. Heart/Mediastinum: There is moderate cardiomegaly. Bones/joints: There are sternal wires. IMPRESSION: Stable moderate cardiomegaly Electronically signed by: Jason Carter On 12/17/2019 09:12:12 AM
[2019-12-17 12:00] VITALS: BP 174/84
--- NOTE | 2019-12-17 12:13 | IPNPDOC ---
Text Note Date of Service The patient was seen on 12/17/19. NOTE SUBJECTIVE: Patient was seen and examined today at bedside. He states his legs feel much less swollen today, although he still notices significant fluid in his feet. His muscle cramping has improved with the decrease frequency of Lasix injections. He denies shortness of breath today. OBJECTIVE: PHYSICAL EXAMINATION: VITAL SIGNS: Please see below. GENERAL: Alert, laying comfortably in bed, in no acute distress HEENT: NC, AT, moist mucous membranes, elevated JVP at 12-14 cm. CARDIOVASCULAR: RRR, normal S1 and S2 RESPIRATORY: Decreased breath sounds in bilateral lung bases. ABDOMINAL: Soft, nontender, nondistended EXTREMITIES: 2+ pitting edema noted in bilateral lower extremities up to the mid calf. ASSESSMENT/PLAN: 74 year old male who presented with hypovolemic hyponatremia and acute decompensated diastolic CHF. 1. Hyponatremia. Patient has hypervolemic hyponatremia which is responding to the diuretics. Continue with lasix, metolazone, and spironolactone. 2. Acute decompensated diastolic congestive heart failure. Patients echocardiogram report was reviewed. He has grade 3-4 diastolic dysfunction. Continue diuresis with Lasix, metolazone, and spironolactone was added today. Frequency of lasix injections was decreased due to muscle cramping. Continue current antihypertensive regimen. May switch back to tu inhibitor when renal function improves. 3. Acute kidney injury on chronic kidney disease stage 3. Cr continues to trend down, at 1.62 today. Baseline Cr level around 1.3. Continue with diuresis as noted above. Tu inhibitor on hold until renal function improves. 4. Hypertension with hypertensive heart disease. Patient continues to be on h ydralazine and atenolol. Angiotensin converting enzyme (TU) inhibitor was held because of acute kidney injury and he is being aggressively diuresed. Continue isosorbide dinitrate 20 mg every 8 hours, which was added during this admission. 5. Iron deficiency anemia. Patient finished 3 days of IV Venofer. Hg stable at 11.2. 6. Diabetes mellitus type 2. Continue insulin sliding scale and Levemir. 7. Atrial fibrillation. Rate is controlled with atenolol. Continue current dose of Eliquis for anticoagulation. Thank you for the consultation on this patient, we will continue to follow along. VS,Pat, I+O VS, Calvinbone, I+O Laboratory Tests 12/17/19 04:06 Vital Signs Date Time Temp Pulse Resp B/P (MAP) Pulse Ox O2 Delivery O2 Flow Rate FiO2 12/17/19 08:04 78 140/80 12/17/19 08:00 98.2 8 97 Room Air 12/13/19 06:00 1.0 I&O- Last 24 Hours up to 6 AM 12/17/19 06:00 Intake Total 870 ml Output Total 3575 ml Balance -2705 ml SHEREEN NEGRON D.O. Dec 17, 2019 12:13
[2019-12-17] MEDS ORDERED: CYCLOBENZAPRINE 10MG TABLET PO PRN (14:30)
[2019-12-17] MEDS ORDERED: CYCLOBENZAPRINE 10MG TABLET PO ONE (15:00)
[2019-12-17 16:22] VITALS: BP 150/70
[2019-12-17 20:00] VITALS: BP 167/74
[2019-12-17] MEDS: ROSUVASTATIN 10 MG TAB (CRESTOR) PO SCH (21:16)
[2019-12-18] VITALS: BP 168/74
[2019-12-18] MEDS: ISOSORBIDE DIN. (ISORDIL) 20 MG TAB PO SCH ×2 (00:13→06:06)
[2019-12-18] MEDS: IPRATROPIUM 0.5MG/ALBUTEROL 2.5MG INH SOL UD 3ML (DUONEB) NEB SCH ×2 (02:00→08:00)
[2019-12-18 04:00] VITALS: BP 163/85
[2019-12-18] MEDS: **hydrALAZINE HCL** 25 MG TAB PO SCH (06:06)
[2019-12-18 07:24] VITALS: BP 154/79
[2019-12-18] MEDS: HumaLOG INSULIN (NovoLOG) PER UNIT SC SCH (07:30)
[2019-12-18] MEDS ORDERED: LASI80TA3 IV (07:51)
[2019-12-18] MEDS ORDERED: ISOS30TAB PO (07:51)
[2019-12-18] MEDS ORDERED: HYDR25TA PO (07:51)
[2019-12-18] MEDS: EZETIMIBE 10 MG TAB (ZETIA) PO SCH (08:21)
[2019-12-18] MEDS: DOCUSATE SODIUM 100 MG CAP PO SCH (08:21)
[2019-12-18] MEDS: MULTIVITAMINS/MINERALS THERAP 1 TAB PO SCH (08:21)
[2019-12-18] MEDS: CLOPIDOGREL 75 MG TAB PO SCH (08:21)
[2019-12-18] MEDS: FOLIC ACID 1 MG TAB PO SCH (08:21)
[2019-12-18] MEDS: predniSONE 20 MG TAB PO SCH (08:21)
[2019-12-18] MEDS: APIXABAN 2.5 MG TAB (ELIQUIS) PO SCH (08:21)
[2019-12-18 08:22] VITALS: BP 154/79
[2019-12-18] MEDS: LEVEMIR (INSULIN DETEMIR) 1 UNITS/0.01ML SC SCH (08:22)
[2019-12-18] MEDS: atenoloL 50 MG TAB PO SCH (08:22)
[2019-12-18] MEDS: PANTOPRAZOLE 40MG TAB (PROTONIX) PO SCH (08:22)
[2019-12-18] MEDS: FUROSEMIDE 40MG/4ML VIAL (J1940) IV SCH ×2 (08:23)
[2019-12-18] MEDS: SPIRONOLACTONE 25 MG TAB PO SCH (08:30)
[2019-12-18 11:08] LABS: CALCIUM LEVEL 9.5 MG/DL (8.8-10.2); CREATININE FOR GFR 1.72 MG/DL (0.70-1.30); GLOMERULAR FILTRATION RATE 41.4 (>42); MAGNESIUM LEVEL 2.5 MG/DL (1.8-2.4); POTASSIUM SERUM 4.6 MEQ/L (3.5-5.1)
[2019-12-18] MEDS ORDERED: **hydrALAZINE HCL** 25 MG TAB PO SCH (12:00)
[2019-12-18] MEDS ORDERED: ISOSORBIDE DIN. (ISORDIL) 30 MG TAB PO SCH (14:00)
--- NOTE | 2019-12-20 09:38 | IPN ---
DATE: 12/17/2019 SUBJECTIVE : Patient continues to complain of lower extremity edema and swelling when he hangs his legs down the side of the bed. Still with slight dyspnea on exertion. No fever, chills, or cough. Input was 690, output of 3450 -2750 yesterday. Since midnight 650 input, output 1825, -1165. Current weight is 106 from admission weight peak of 118 kg. Patient denies any chest pain, pressure, or tightness, lightheadedness, or dizziness. Denies any cough or chills. No complaints of thirst. OBJECTIVE: PHYSICAL EXAMINATION: VITAL SIGNS: Temperature 98.2, pulse 78, irregular, respiratory rate 18, blood pressure 140/80, 97% on room air. GENERAL: Patient is awake, alert, oriented times three. No jugular venous distention (JVD) or thyromegaly. No cervical lymphadenopathy. Moist mucous membranes. Ecchymosis and bruising along the lower neck. No bruits. LUNGS: Clear to auscultation. No wheezing, rales, or rhonchi. HEART: S1, S2, irregularly irregular. ABDOMEN: Soft, nontender, nondistended. Positive bowel sounds. EXTREMITIES: Pitting edema 2+. LABORATORY DATA: White count 10, hemoglobin 11, hematocrit 32, platelet count 230. Sodium 131, potassium 4, chloride 93, bicarbonate 33, BUN 39, creatinine 1.6, glucose 61. HOSPITAL MEDICATIONS: - Lasix 80 IV every 8 - spironolactone 25 daily - prednisone 20 twice a day, home dose - isosorbide 20 every 8 hours - atenolol 50 daily - hydralazine 25 every 8 - Protonix 40 daily - folic acid - multivitamin - Plavix - Zetia - Levemir insulin - Humalog sliding scale - Colace - Lispro - Eliquis - Crestor - DuoNeb - acetaminophen - Proventil Hypoglycemic protocol. IMAGING STUDY: Chest x-ray 12/17/2019: Stable moderate cardiomegaly. No pleural effusion. No pneumothorax. Sternal wires. Mild hyperinflation. ASSESSMENT AND PLAN: This is a 74-year-old male with a history of coronary artery bypass graft (CABG) in 1990, percutaneous transluminal coronary angioplasty (PTCA) of the right coronary artery in 1996, chronic obstructive pulmonary disease (COPD), congestive heart failure, diastolic dysfunction, ejection fraction 65% with preserved systolic function, chronic kidney disease (CKD) III, atrial fibrillation, on chronic Eliquis, hypertension, hyponatremia, [id number] diabetes, obesity, admitted on December 11 due to worsening shortness of breath, initially with exertion, eventually at rest, found to be in decompensated congestive heart failure (CHF) with severe hyponatremia, sodium level 124. 1. Decompensated congestive heart failure, acute exacerbation. 2. Diastolic dysfunction with preserved systolic function. Per Dr. Brock, sensor specialist, patient should be transferred to [place] once he is euvolemic for coronary angiogram in light of prior coronary artery disease (CAD) and CABG and new decompensated CHF. Dr. Wiggins, nephrology, has been consulted for management of patient's acute on chronic renal failure and fluid management. He is currently net-negative balance, peak weight of 118 kg on admission, currently at 106 kg with 24-pound weight loss. Patient has been given IV Lasix, spironolactone, and Zaroxolyn prior to Lasix and responding well. 3. Hyponatremia, improved from 124 to 131. Patient is asymptomatic without headache, changes in vision, or confusion. Appears to be well tolerated. Managed by nephrology. 4. Hypertension, on atenolol, Lasix, hydralazine, isosorbide, managed by nephrology. 5. COPD. At baseline dose of prednisone at home, 20 twice a day. 6. Obesity, complicating his care. Body mass index (BMI) of 37. 7. Anemia of chronic disease on chronic renal failure, on chronic iron. Baseline creatinine is 1.6, currently at stage III renal failure, which is his baseline. He may need nephrology consult in [place] once transferred to [facility] for coronary angiogram to help prevent contrast nephropathy with contrast dye. 8. History of CAD/CABG, on Plavix, metoprolol, and Crestor. Patient is being transferred to [place] once bed is available for coronary angiogram in light of decompensated CHF to rule out recurrent CAD. Patient has negative troponins and did not suffer from ST-elevation myocardial infarction (DC) during this admission. 9. Atrial fibrillation, currently rate controlled on metoprolol. On chronic Eliquis. [facility]
--- NOTE | 2019-12-21 11:05 | ECGEPIP ---
[facility] - ED Test Date: 2019-12-12 Pat Name: VALERY MEDLEY Department: Room: [place] [address] Gender: Male Instrument Tester: NICK : [id number] Requested By: HELENA RIVERA Order Number: [id number] Reading MD: Cindy Villalobos Measurements Intervals [place] Rate: 66 P: TX: 0 QRS: -6 QRSD: 168 T: 12 QT: 465 QTc: 490 Interpretive Statements ATRIAL FIBRILLATION RIGHT BUNDLE BRANCH BLOCK SEE DOWNTIME SCANNED REPORT
--- NOTE | 2020-01-09 10:22 | REP ---
CHEST X-RAY CLINICAL: Shortness of breath. TECHNIQUE: PA and lateral. COMPARISON: 06/08/2012. FINDINGS: Evidence for prior sternotomy and CABG along with cardiomegaly again noted. Lung rios demonstrate chronic lower lobe changes. No obvious acute consolidation, effusion, or pneumothorax. Skeletal structures demonstrate age-related osteopenia and degenerative changes. IMPRESSION: Chronic cardiomegaly and chronic interstitial changes primarily involving the bilateral lung bases. No obvious acute consolidation or effusion. MTDD
--- NOTE | 2020-01-10 10:42 | DSES ---
DATE OF ADMISSION: 12/12/2019 DATE OF DISCHARGE: 12/18/2019 Patient is transferred to [facility] for coronary angiogram due to prior history of coronary artery bypass graft surgery (CABG) and acute congestive heart failure (CHF) exacerbation. CONSULTANTS: Dr. Brock by telephone, cardiology. Dr. Wiggins and Dr. Jones, nephrologists. DISCHARGE DIAGNOSES: 1. Acute on chronic diastolic heart failure exacerbation. 2. Acute on chronic renal failure stage III secondary to congestive heart failure (CHF). 3. Anemia of chronic disease due to renal failure. 4. Hyponatremia secondary to congestive heart failure. 5. Metabolic alkalosis secondary to Lasix diuresis. 6. Anemia of chronic disease. 7. History of CABG in 1990. 8. Chronic obstructive pulmonary disease (COPD). 9. Atrial fibrillation on chronic Eliquis. 10. Hypertensive heart disease. 11. Chronic hyponatremia. 12. Non-insulin dependent diabetes. 13. Obesity. DISCHARGE MEDICATIONS: - Lasix 80 mg IV every 8 hours - isosorbide dinitrate 30 mg every 8 hours - spironolactone 25 every morning - hydralazine 25 every 6 hours - Levemir insulin 5 units subcutaneous twice a day - albuterol three times a day as needed - Norvasc 5 twice a day - atenolol 50 daily - Plavix 75 daily - Zetia 10 daily - multivitamin one tablet daily - prednisone 20 twice a day - rosuvastatin 5 mg nightly - Incruse Ellipta one puff inhaled daily HOSPITAL COURSE: This is a 74-year-old male that was admitted on 12/12/2019 with prior history of CAD, CABG, percutaneous transluminal coronary angioplasty (PTCA) with plans for elective coronary angiogram as outpatient per Dr. Brooks, coil former. Patient has had worsening shortness of breath, two pillow orthopnea, and has been feeling terrible for 1 week. He has had episodes of prior hyponatremia with sodium level of 123-124 but this time denied any headache, changes in vision, or confusion. He was found to be in decompensated heart failure with chest x-ray showing bilateral pleural effusions, 2+ pitting edema bilateral lower extremities, and two pillow orthopnea complaints. Patient is compliant with his home dose of Bumex, fluid restriction, and salt intake. Admission weight was 118.7 kg with discharge weight of 105.6 kg. Nephrology was consulted due to acute on chronic renal failure stage III with admission creatinine of 1.31. Patient was diuresed with net negative balance for the past 6 days with decrease in weight from 118 kg to 105.6 kg with creatinine at baseline of 1.6. Patient had been given Zaroxolyn and started on spironolactone. He had uncontrolled high blood pressure which was treated with hydralazine and isosorbide with increasing doses now at every 6 hours hydralazine 25, isosorbide of 30 every 8 hours. He was kept on his home dose of atenolol at [address] on admission on 12/13/2019 shows small to moderate bilateral pleural effusions, no pulmonary embolism, sternotomy, CABG, and prior cholecystectomy. Repeat chest x-ray on 12/17/2019 showed lungs with mild hyperinflation, no pleural effusion or edema, no pneumothorax, moderate cardiomegaly and sternal wires. PHYSICAL EXAMINATION ON DISCHARGE: Temperature 98.2, pulse 92, respiratory rate 18, blood pressure 154/79, 96% on room air. Generally: Patient has some bruising along the anterior neck, no bruits, no active bleeding, no jugular venous distention (JVD). Lungs: Clear to auscultation. No wheezing or rales. Heart: S1, S2, irregularly irregular. Abdomen: Obese, soft, nontender, nondistended. Extremities: 2+ edema to the sacrum. LABORATORY DATA: 12/17/2019 CBC: White count 10.5, hemoglobin 11, hematocrit 32, platelet count 230. 12/17/2019: Sodium 131, potassium 4.2, chloride 93, bicarbonate 33, BUN 39, creatinine 1.62, glucose of 161, magnesium of 2.5. Microbiology: COVID negative on 12/12/2019. Blood culture 12/12/2019, no growth after 5 days. COVID-19 PCR is negative 12/17/2019 8:23 a.m. DISCHARGE INSTRUCTIONS: Patient is transferred to [facility]. Accepting physician is Dr. Pierce for coronary angiogram in light of decompensated heart failure with prior history of CABG in 1990 to rule out coronary artery disease and evaluate for revascularization. Due to chronic kidney disease stage III with creatinine of 1.6, patient was instructed to have a plant maintenance technician see him and to prevent contrast nephropathy with his coronary angiogram. TIME SPENT ON DISCHARGE: 30 minutes. JAIME
== END 2019-12-18 10:37 | disposition short-term general hospital (02) | DRG 291 ==
LOC: M ED 14:58 → M ED INP 19:30 → ENRESERV 20:03 → M PCU 23:36
PROVIDERS: ADMIT Internal Medicine; ATTEND General Practice
DX: I13.0 Hypertensive heart and chronic kidney disease with heart failure and stage 1 through stage 4 chronic kidney disease, or unspecified chronic kidney disease (principal); I50.33 Acute on chronic diastolic (congestive) heart failure; J44.1 Chronic obstructive pulmonary disease with (acute) exacerbation; E87.1 Hypo-osmolality and hyponatremia; I48.20 Chronic atrial fibrillation, unspecified; N17.9 Acute kidney failure, unspecified; I25.10 Atherosclerotic heart disease of native coronary artery without angina pectoris; N18.3 Chronic kidney disease, stage 3 (moderate); E11.22 Type 2 diabetes mellitus with diabetic chronic kidney disease; E78.5 Hyperlipidemia, unspecified; E66.9 Obesity, unspecified; Z87.891 Personal history of nicotine dependence; Z90.49 Acquired absence of other specified parts of digestive tract; Z95.1 Presence of aortocoronary bypass graft; D63.1 Anemia in chronic kidney disease; Z68.37 Body mass index [BMI] 37.0-37.9, adult; Z79.01 Long term (current) use of anticoagulants; Z79.84 Long term (current) use of oral hypoglycemic drugs; Z79.02 Long term (current) use of antithrombotics/antiplatelets; Z79.899 Other long term (current) drug therapy; Z88.2 Allergy status to sulfonamides; Z11.59 Encounter for screening for other viral diseases

== ENCOUNTER → 2019-12-12 | Outpatient (CLI) | payer MEDICARE ==
[~2019-12-12] MED LIST: ALBU83IN INH; ALDA25TA2 PO; ATEN50TA2 PO; AZIT-12 PO; BUME1TAB3 PO; ELIQ2.5T PO; FOSI40TA3 PO; GLIM1TAB4 PO; HYDR25TA PO; INCR1INH INH; INSUDET SC; ISOS20TAB PO; ISOS30TAB PO; LASI80TA3 IV; NORV5TAB PO; PLAV1TAB2 PO; PRED20TA PO; ROSU5TAB5 PO; VITMTA PO; ZETI10TA16 PO
[2019-12-12 12:54] LABS: BASO % 0.1 % (0.0-1.0); EOS % 0.1 % (0.0-3.0); HEMATOCRIT 35.4 % (42.0-52.0); HEMOGLOBIN 12.2 g/dl (13.5-17.5); LYMPH # 0.6 10^3/uL (1.5-5.0); MEAN CORPUSCULAR HEMOGLOBIN 33.2 pg (27.0-33.0); MEAN CORPUSCULAR HGB CONC 34.5 g/dl (32.0-36.5); MEAN CORPUSCULAR VOLUME 96.5 fl (80.0-96.0); MONO # 1.4 10^3/uL (0.0-0.8); MONO % 9.4 % (0.0-5.0); NEUTROPHILS # 12.8 10^3/uL (1.5-8.5); NEUTROPHILS % 85.9 % (36.0-66.0); PLATELET COUNT, AUTOMATED 198 10^3/uL (150-450); RED BLOOD COUNT 3.67 10^6/uL (4.30-6.10); WHITE BLOOD COUNT 14.9 10^3/uL (4.0-10.0)
[2019-12-12 13:03] LABS: CALCIUM LEVEL 8.8 MG/DL (8.8-10.2); CREATININE FOR GFR 1.55 MG/DL (0.70-1.30); GLOMERULAR FILTRATION RATE 46.6 (>42); POTASSIUM SERUM 4.2 MEQ/L (3.5-5.1)
--- NOTE | 2020-01-09 10:12 | REP ---
CHEST X-RAY CLINICAL: Dyspnea. TECHNIQUE: PA and lateral. COMPARISON: 06/08/2012. FINDINGS: Evidence for prior sternotomy and CABG. Stable cardiomegaly. Chronic changes are appreciated with superimposed small to moderate pleural effusions and basilar atelectasis. Elements of pulmonary vascular congestion cannot be excluded. IMPRESSION: Chronic changes with superimposed small to moderate pleural effusions and bibasilar atelectasis. MTDD
== END ==
LOC: M WUC 10:23
PROVIDERS: ATTEND Physician Assistant
DX: R06.02 Shortness of breath (principal)

== ENCOUNTER → 2020-01-02 | Outpatient (REF) | payer MEDICARE ==
[2020-01-02 11:50] LABS: BASO % 0.3 % (0.0-1.0); EOS # 0.2 10^3/uL (0.0-0.5); EOS % 3.7 % (0.0-3.0); HEMATOCRIT 38.9 % (42.0-52.0); HEMOGLOBIN 13.1 g/dl (13.5-17.5); LYMPH % 16.1 % (24.0-44.0); MEAN CORPUSCULAR HGB CONC 33.7 g/dl (32.0-36.5); MONO % 15.8 % (0.0-5.0); NEUTROPHILS % 63.8 % (36.0-66.0); PLATELET COUNT, AUTOMATED 239 10^3/uL (150-450); RED BLOOD COUNT 3.97 10^6/uL (4.30-6.10); WHITE BLOOD COUNT 6.2 10^3/uL (4.0-10.0)
[2020-01-02 12:01] LABS: CALCIUM LEVEL 9.1 MG/DL (8.8-10.2); CREATININE FOR GFR 1.54 MG/DL (0.70-1.30); POTASSIUM SERUM 4.6 MEQ/L (3.5-5.1)
== END ==
LOC: M LABDRAWC 11:10
PROVIDERS: ATTEND Physician Assistant
DX: I25.10 Atherosclerotic heart disease of native coronary artery without angina pectoris (principal)

== ENCOUNTER → 2020-10-02 | Outpatient (REF) | payer MEDICARE ==
[2020-10-02 16:57] LABS: BASO % 0.3 % (0.0-1.0); EOS # 0.3 10^3/uL (0.0-0.5); EOS % 3.9 % (0.0-3.0); HEMATOCRIT 39.6 % (42.0-52.0); HEMOGLOBIN 13.1 g/dl (13.5-17.5); LYMPH # 1.2 10^3/uL (1.5-5.0); LYMPH % 15.7 % (24.0-44.0); MEAN CORPUSCULAR HEMOGLOBIN 33.1 pg (27.0-33.0); MEAN CORPUSCULAR HGB CONC 33.1 g/dl (32.0-36.5); NEUTROPHILS % 66.7 % (36.0-66.0); PLATELET COUNT, AUTOMATED 213 10^3/uL (150-450); RED BLOOD COUNT 3.96 10^6/uL (4.30-6.10); WHITE BLOOD COUNT 7.5 10^3/uL (4.0-10.0)
[2020-10-02 17:01] LABS: ALBUMIN 3.9 GM/DL (3.2-5.2); CALCIUM LEVEL 9.2 MG/DL (8.8-10.2); CREATININE FOR GFR 1.52 MG/DL (0.70-1.30); GLOMERULAR FILTRATION RATE 47.6 (>42); MAGNESIUM LEVEL 2.4 MG/DL (1.8-2.4); POTASSIUM SERUM 4.1 MEQ/L (3.5-5.1); URIC ACID 8.7 MG/DL (3.5-7.2)
[2020-10-02 17:23] LABS: APPEARANCE, URINE CLEAR (CLEAR); BACTERIA, URINE AUTO NEGATIVE (NEGATIVE); BILIRUBIN, URINE AUTO NEGATIVE (NEGATIVE); BLOOD, URINE BLOOD NEGATIVE (NEGATIVE); COLOR, URINE STRAW (YELLOW); GLUCOSE, URINE (UA) AUTO 1+ mg/dL (NEGATIVE); KETONE, URINE AUTO NEGATIVE (NEGATIVE); LEUKOCYTE ESTERASE, URINE AUTO NEGATIVE (NEGATIVE); NITRITE, URINE AUTO NEGATIVE (NEGATIVE); PROTEIN, URINE AUTO NEGATIVE (NEGATIVE); RBC, URINE AUTO 0 /HPF (0-3); SPECIFIC GRAVITY URINE AUTO 1.005 (1.002-1.035); SQUAMOUS EPITHELIAL CELL UR AU 0 /HPF (0-6); UROBILINOGEN, URINE AUTO 0.2 mg/dL (0.0-2.0); WBC, URINE AUTO 0 /HPF (0-3)
== END ==
LOC: M LABDRAWC 15:42
PROVIDERS: ATTEND Internal Medicine Nephrology
DX: N18.31 Chronic kidney disease, stage 3a (principal)

== ENCOUNTER → 2020-12-28 | Outpatient (REF) | payer MEDICARE ==
[~2020-12-28] MED LIST changes: -FOSI40TA3 PO; +FOSI40TA59 PO; +ISOS20TA4 PO; -ISOS20TAB PO
[2020-12-28 12:15] LABS: CALCIUM LEVEL 9.3 MG/DL (8.8-10.2); CREATININE FOR GFR 1.37 MG/DL (0.70-1.30); GLOMERULAR FILTRATION RATE 53.6 (>42); POTASSIUM SERUM 4.3 MEQ/L (3.5-5.1)
== END ==
LOC: M SFHCCLAY 08:20
PROVIDERS: ATTEND Family Medicine
DX: E11.22 Type 2 diabetes mellitus with diabetic chronic kidney disease (principal); Z11.52 Encounter for screening for COVID-19

== ENCOUNTER → 2021-12-27 | Outpatient (REF) | payer MEDICARE ==
[~2021-12-27] MED LIST changes: +ALBU2.5V10 INH; -ALBU83IN INH
[2021-12-27 12:13] LABS: HEMOGLOBIN A1c 6.7 %
[2021-12-27 12:17] LABS: CALCIUM LEVEL 9.2 MG/DL (8.8-10.2); CHOLESTEROL RISK RATIO 1.921 (<5); CREATININE FOR GFR 1.27 MG/DL (0.70-1.30); GLOMERULAR FILTRATION RATE 58.4 (>42); POTASSIUM SERUM 4.5 MEQ/L (3.5-5.1)
== END ==
LOC: M SFHCCLAY 09:02
PROVIDERS: ATTEND Family Medicine
DX: E11.22 Type 2 diabetes mellitus with diabetic chronic kidney disease (principal)

== ENCOUNTER → 2021-12-31 | Outpatient (REF) | payer MEDICARE ==
[2021-12-31 12:16] LABS: CREATININE FOR GFR 1.3 MG/DL (0.70-1.30); GLOMERULAR FILTRATION RATE 56.8 (>42); POTASSIUM SERUM 5.4 MEQ/L (3.5-5.1)
[2021-12-31 12:17] LABS: CALCIUM LEVEL 9.2 MG/DL (8.8-10.2); MAGNESIUM LEVEL 2.4 MG/DL (1.8-2.4)
== END ==
LOC: M SFHCCLAY 09:26
PROVIDERS: ATTEND Family Medicine
DX: E87.1 Hypo-osmolality and hyponatremia (principal); R25.2 Cramp and spasm